=== PATIENT | female | born 1965 | race Caucasian/White ===

== ENCOUNTER → 2019-03-02 | Outpatient (CLI) | payer OTHER ==
[~2019-03-02] MED LIST: ADVA1AER2; ALBU17IN2; BENI20TA11; LEVA500T; PRED20TA; SING10TA31; TAMIFLU; albuterol
--- NOTE | 2019-03-02 11:28 | REP ---
Clinical: Left hip pain. Technique: Neutral and frog lateral views of the left hip. Findings: Evidence for prior arthroplasty with normal appearance in positioning of the orthopedic hardware. No evidence for loosening. No acute fracture dislocation. No degenerative changes or significant heterotopic ossification. Surrounding soft tissues are unremarkable. Impression: Relatively normal left hip radiographs. Evidence of prior arthroplasty. Electronically Signed by Andrae Jay MD 03/02/2019 11:19 A
[2019-03-02 12:06] LABS: HEMOGLOBIN A1c 10.7 %
[2019-03-02 12:28] LABS: ALBUMIN 3.5 GM/DL (3.2-5.2); BILIRUBIN,DIRECT 0.1 MG/DL (0.0-0.2); BILIRUBIN,TOTAL 0.4 MG/DL (0.2-1.0); CHOLESTEROL RISK RATIO 4.904 (<5); THYROID STIMULATING HORMONE 3.2 uIU/ML (0.358-3.740); THYROXINE (T4) 10.8 UG/DL (4.5-12.0); TOTAL PROTEIN 7.3 GM/DL (6.4-8.2)
== END ==
LOC: M LAB 10:14
PROVIDERS: ATTEND Student in an Organized Health Care Education/Training Program
DX: M25.552 Pain in left hip (principal); E66.01 Morbid (severe) obesity due to excess calories; Z86.39 Personal history of other endocrine, nutritional and metabolic disease

== ENCOUNTER → 2019-03-04 | Outpatient (REF) | payer OTHER | LOC: M SFHCPLAZ 17:06 | PROVIDERS: ATTEND Family Medicine | DX: Z53.9 Procedure and treatment not carried out, unspecified reason (principal); Z87.09 Personal history of other diseases of the respiratory system; E11.69 Type 2 diabetes mellitus with other specified complication ==

== ENCOUNTER → 2019-03-15 | Outpatient (CLI) | payer OTHER ==
[~2019-03-15] MED LIST changes: +ATOR80TA59; +METF-839 PO; +TOPI25TA10
--- NOTE | 2019-03-15 10:34 | REP ---
RIGHT UPPER QUADRANT SONOGRAPHY: HISTORY: Elevated liver enzymes. FINDINGS: Scanning through the right upper quadrant demonstrates an enlarged echogenic liver consistent with fatty infiltration. The liver span in the midclavicular line is 22 cm. No focal liver lesion is seen. Limited views of the pancreas are unremarkable. The common bile duct could not be seen due to poor insonation of the liver and right upper quadrant. The gallbladder is surgically absent. There is no evidence of right renal abnormality. The right kidney measures 13.4 x 6.4 x 5.5 cm. IMPRESSION: Evidence of fatty infiltration of the liver with hepatomegaly. Otherwise negative post cholecystectomy. Common bile duct not seen. Electronically Signed by Mike Villatoro MD 03/15/2019 10:54 A
== END ==
LOC: M RAD 08:13
PROVIDERS: ATTEND Student in an Organized Health Care Education/Training Program
DX: R94.5 Abnormal results of liver function studies (principal)

== ENCOUNTER → 2019-03-20 | Outpatient (CLI) | payer OTHER ==
[2019-03-20 16:37] LABS: BLOOD UREA NITROGEN 15 MG/DL (7-18); CALCIUM LEVEL 9.7 MG/DL (8.5-10.1); CARBON DIOXIDE LEVEL 24 MEQ/L (21-32); CHLORIDE LEVEL 104 MEQ/L (98-107); CREATININE FOR GFR 0.75 MG/DL (0.55-1.30); GLOMERULAR FILTRATION RATE > 60.0 (>51); GLUCOSE, FASTING 327 MG/DL (70-100); POTASSIUM SERUM 4.3 MEQ/L (3.5-5.1); SODIUM LEVEL 136 MEQ/L (136-145)
== END ==
LOC: M LAB 14:56
PROVIDERS: ATTEND Student in an Organized Health Care Education/Training Program
DX: E11.69 Type 2 diabetes mellitus with other specified complication (principal)

== ENCOUNTER 2019-03-21 00:28 | Emergency (ER) | payer OTHER ==
[~2019-03-21] VITALS: Ht 172.7 cm; Wt 135.4 kg
[~2019-03-21 00:28] MED LIST changes: -ATOR80TA59; -METF-839 PO; -TOPI25TA10
[2019-03-21] MEDS ORDERED: TOPI25TA10 (00:38)
[2019-03-21] MEDS ORDERED: ATOR80TA59 (00:38)
[2019-03-21 01:07] LABS: BASO % 0.5 % (0.0-1.0); EOS # 0.1 10^3/uL (0.0-0.50); EOS % 0.8 % (0.0-3.0); HEMATOCRIT 45.9 % (36.0-47.0); HEMOGLOBIN 15.7 g/dl (12.0-15.5); LYMPH # 2.3 10^3/uL (1.5-4.5); LYMPH % 38.1 % (24.0-44.0); MEAN CORPUSCULAR HEMOGLOBIN 31.4 pg (27.0-33.0); MEAN CORPUSCULAR HGB CONC 34.2 g/dl (32.0-36.5); MEAN CORPUSCULAR VOLUME 91.8 fl (80.0-96.0); MONO # 0.5 10^3/uL (0.0-0.8); MONO % 8.8 % (0.0-5.0); NEUTROPHILS # 3.1 10^3/uL (1.8-7.7); NEUTROPHILS % 51.1 % (36.0-66.0); PLATELET COUNT, AUTOMATED 219 10^3/uL (150-450)
[2019-03-21 01:08] LABS: VENOUS BASE EXCESS -5.1 (-2.0-2.0); VENOUS HCO3 20.8 MEQ/L (23.0-27.0); VENOUS O2 SATURATION 95.8 % (60.0-80.0); VENOUS PARTIAL PRESSURE CO2 41.4 mmHg (38.0-50.0); VENOUS PARTIAL PRESSURE O2 82.8 mmHg (30.0-50.0); VENOUS PH 7.318 UNITS (7.330-7.430); VENOUS STANDARD HCO3 20.3 MEQ/L
[2019-03-21 01:29] LABS: HEMOGLOBIN A1c 11.5 %
[2019-03-21 01:53] LABS: OSMOLALITY SERUM 305 MOSM/KG (275-295)
[2019-03-21 01:56] LABS: ACETONE/KETONE 1.54 MG/DL (<2.81); BLOOD UREA NITROGEN 14 MG/DL (7-18); CALCIUM LEVEL 9.9 MG/DL (8.5-10.1); CARBON DIOXIDE LEVEL 24 MEQ/L (21-32); CHLORIDE LEVEL 101 MEQ/L (98-107); CREATININE FOR GFR 0.96 MG/DL (0.55-1.30); GLOMERULAR FILTRATION RATE > 60.0 (>51); GLUCOSE, FASTING 496 MG/DL (70-100); POTASSIUM SERUM 3.7 MEQ/L (3.5-5.1); SODIUM LEVEL 133 MEQ/L (136-145)
[2019-03-21] MEDS ORDERED: ACETAMINOPHEN TAB 650MG DOSE (2X325MG) PO ONE (02:30)
[2019-03-21] MEDS ORDERED: metFORMIN (GLUCOPHAGE) 500 MG TAB PO ONE (02:30)
[2019-03-21] MEDS ORDERED: HumuLIN R (REGULAR) INSULIN (NovoLIN R) **100U/ML** PER UNIT IV ONE (02:30)
[2019-03-21] MEDS ORDERED: NS 1,000 ML IV ONE (02:30)
[2019-03-21 03:44] LABS: VENOUS BASE EXCESS -5.9 (-2.0-2.0); VENOUS HCO3 19.8 MEQ/L (23.0-27.0); VENOUS O2 SATURATION 97.3 % (60.0-80.0); VENOUS PARTIAL PRESSURE CO2 39.7 mmHg (38.0-50.0); VENOUS PARTIAL PRESSURE O2 94.1 mmHg (30.0-50.0); VENOUS PH 7.316 UNITS (7.330-7.430); VENOUS STANDARD HCO3 19.7 MEQ/L
[2019-03-21 04:15] VITALS: BP 163/91
[2019-03-21] MEDS ORDERED: METF-839 PO (04:17)
== END 2019-03-21 04:38 | disposition home or self-care (01) ==
LOC: M ED 00:28
DX: E11.65 Type 2 diabetes mellitus with hyperglycemia (principal); Z79.899 Other long term (current) drug therapy; Z88.5 Allergy status to narcotic agent; Z88.7 Allergy status to serum and vaccine; Z91.030 Bee allergy status; F17.210 Nicotine dependence, cigarettes, uncomplicated

== ENCOUNTER → 2019-05-01 | Outpatient (CLI) | payer OTHER ==
[~2019-05-01] MED LIST changes: +ATOR80TA59; +METF-839 PO; +TOPI25TA10
--- NOTE | 2019-05-01 15:26 | REPMRS ---
Patient History The patient states she has not had a clinical breast exam in over a year. Patient is postmenopausal. Family history of breast cancer at age 50 in maternal aunt, breast cancer at age 50 in paternal uncle, ovarian cancer at age 50 or over in sister, colorectal cancer at age 50 or over in paternal uncle. No Hormone Replacement Therapy 3D TOMOSYNTHESIS WAS PERFORMED. [facility] lifetime risk for breast cancer is 7.9%. Digital Woman Screen Mammo: May 01, 2019 - Exam #: [id number] Bilateral CC and MLO view(s) were taken. Technologist: Taylor Disla, Technologist Prior study comparison: January 27, 2015, bilateral digital mammo screening bilat, performed at [facility]. December 17, 2013, bilateral digital mammo screening bilat, performed at [facility]. FINDINGS: There are scattered fibroglandular densities. There has been no change in the appearance of the mammogram from the prior studies. There is a mild amount of residual fibroglandular tissue which is fairly symmetric. There is no interval development of dominant mass, architectural distortion, or clustered microcalcification suggestive of malignancy. Assessment: BI-RADS/ACR category 1 mammogram. Negative Mammogram. Recommendation Routine screening mammogram in 1 year (for women over age 40). This mammogram was interpreted with the aid of an FDA-approved computer-aided dectection system. Electronically Signed By: Evan Soto MD 05/01/19 [id number]
== END ==
LOC: M WHC 14:02
PROVIDERS: ATTEND Student in an Organized Health Care Education/Training Program
DX: Z12.31 Encounter for screening mammogram for malignant neoplasm of breast (principal); Z78.0 Asymptomatic menopausal state

== ENCOUNTER → 2019-06-05 | Outpatient (CLI) | payer OTHER ==
[2019-06-05 14:19] LABS: CHOLESTEROL RISK RATIO 3.621 (<5)
--- NOTE | 2019-06-05 14:27 | PFTRPT ---
Site: [facility], [address] [place] [address], [id number] ID: [id number] Name: YONG SANABRIA Visit Date: 06/05/2019 Second ID: [id number] Referring Doctor: Benita Deras D.O. Reviewing Doctor: Palomo Lei MD Pharmaceutical Engineer: Julia Lora Age: 54 : 1965 Sex: Female Race: Height: 67.00 Inches Weight: 294.00 Lbs BSA: 2.38 Order IDs: [id number] Requested Test(s): <RESP-PFT.DLCO> Diagnosis: G89.29 test meet the ATS standards for acceptability and repeatability. Pt was given four puffs of albuterol for postbronchodilator. Review Status: Not Reviewed Pre-Bronch Post-Bronch Pred Actual %Pred Actual %Chng SPIROMETRY FVC (L) 3.80 2.28 60 2.68 17 FEV1 (L) 2.97 1.75 58 2.09 19 FEV1/FVC (%) 79 76 96 78 2 FEF 25% (L/sec) 5.41 2.67 49 4.18 56 FEF 50% (L/sec) 3.77 1.93 51 2.99 54 FEF 75% (L/sec) 1.32 0.68 51 1.36 99 FEF 25-75% (L/sec) 2.72 1.51 55 2.56 69 FEF Max (L/sec) 7.00 3.19 45 4.19 31 FIVC (L) 2.13 2.63 23 FIF 50% (L/sec) 4.22 2.93 69 2.90 -1 FIF Max (L/sec) 2.97 3.15 5 MVV (L/min) 100 55 55 Expiratory Time (sec) 6.97 7.18 2 Back Extrap Vol (L) 0.15 0.13 -8 Time To FEFmax (sec) 0.207 0.142 -31 LUNG VOLUMES SVC (L) 3.46 2.61 75 IC (L) 2.38 2.45 102 ERV (L) 1.08 0.16 15 TGV (L) 3.12 3.70 118 RV (Pleth) (L) 2.04 3.54 173 TLC (Pleth) (L) 5.50 6.15 111 RV/TLC (Pleth) (%) 37 57 155 DIFFUSION DLCOunc (ml/min/mmHg) 23.37 23.10 98 DLCOcor (ml/min/mmHg) 23.37 22.38 95 DL/VA (ml/min/mmHg/L) 4.25 4.92 115 VA (L) 5.50 4.55 82 BHT (sec) 10.11 IVC (L) 2.44 TLC (SB) (L) 4.70 AIRWAYS RESISTANCE Raw (cmH2O/L/s) 1.86 2.93 157 Gaw (L/s/cmH2O) 1.03 0.34 33 sRaw (cmH2O*s) 4.76 10.39 218 sGaw (1/cmH2O*s) 0.20 0.10 48 BLOOD GASES Hgb (gm/dL) 14.5
[2019-06-05 14:34] LABS: HEMOGLOBIN A1c 10.5 %
--- NOTE | 2019-06-06 09:07 | REP ---
Clinical: Chronic pain. Technique: AP and lateral views of the right femur. Findings: Visualized portions of the femur are intact and without acute fracture or dislocation. No subcutaneous emphysema or foreign body. No abnormal calcifications. Mild arthritic changes at the knee noted. Impression: Mild arthritic changes at the knee. Visualized portions of the femur are intact. Electronically Signed by Andrae Jay MD 06/06/2019 08:59 A
--- NOTE | 2019-06-06 09:09 | REP ---
Clinical: Chronic pain. Technique: Neutral and frog lateral views of the right hip. Findings: Moderate arthritic changes include joint space narrowing, subchondral sclerosis/heterogeneity, and osteophyte formation along the acetabular rim and femoral head. No acute fracture dislocation. Surrounding soft tissues unremarkable. Impression: Early moderate arthritic changes. Electronically Signed by Andrae Jay MD 06/06/2019 09:00 A
== END ==
LOC: M CARPUL 12:56
PROVIDERS: ATTEND Student in an Organized Health Care Education/Training Program
DX: M16.11 Unilateral primary osteoarthritis, right hip (principal); E11.69 Type 2 diabetes mellitus with other specified complication; E78.5 Hyperlipidemia, unspecified; Z11.59 Encounter for screening for other viral diseases; G89.29 Other chronic pain; M25.551 Pain in right hip

== ENCOUNTER → 2020-02-04 | Outpatient (REF) | payer OTHER ==
[~2020-02-04] MED LIST changes: +COMBAER6 INH; +PRED20TA PO
[2020-02-04 17:23] LABS: HEMOGLOBIN A1c 9.1 %
[2020-02-04 17:27] LABS: BLOOD UREA NITROGEN 12 MG/DL (7-18); CALCIUM LEVEL 9.5 MG/DL (8.5-10.1); CARBON DIOXIDE LEVEL 26 MEQ/L (21-32); CHLORIDE LEVEL 106 MEQ/L (98-107); GLOMERULAR FILTRATION RATE > 60.0 (>51); GLUCOSE, FASTING 171 MG/DL (70-100); POTASSIUM SERUM 4.6 MEQ/L (3.5-5.1); SODIUM LEVEL 139 MEQ/L (136-145)
[2020-02-04 18:00] LABS: MAU/CREAT RATIO 17.7 MCG/MG (0.0-30.0)
== END ==
LOC: M SFHCPLAZ 13:49
DX: E11.69 Type 2 diabetes mellitus with other specified complication (principal)

== ENCOUNTER 2020-05-26 12:50 | Emergency (ER) | payer OTHER ==
[~2020-05-26] VITALS: Ht 175.3 cm; Wt 130.0 kg
[~2020-05-26 12:50] MED LIST changes: -COMBAER6 INH; -PRED20TA PO
[2020-05-26 13:22] LABS: BASO % 0.4 % (0.0-1.0); EOS % 0.7 % (0.0-3.0); HEMATOCRIT 49.4 % (36.0-47.0); HEMOGLOBIN 16.3 g/dl (12.0-15.5); LYMPH # 1.6 10^3/uL (1.5-5.0); LYMPH % 34.7 % (24.0-44.0); MEAN CORPUSCULAR HEMOGLOBIN 30.4 pg (27.0-33.0); MONO # 0.4 10^3/uL (0.0-0.8); MONO % 8.4 % (0.0-5.0); NEUTROPHILS # 2.5 10^3/uL (1.5-8.5); NEUTROPHILS % 55.6 % (36.0-66.0); PLATELET COUNT, AUTOMATED 246 10^3/uL (150-450); RED BLOOD COUNT 5.37 10^6/uL (4.00-5.40); WHITE BLOOD COUNT 4.5 10^3/uL (4.0-10.0)
[2020-05-26] MEDS ORDERED: NITROGLYCERIN 2% OINT 1 GM *U/D* PKT TOP ONE (13:30)
[2020-05-26] MEDS ORDERED: GI COCKTAIL 50ML BTL(HYOSCYAMINE/MAALOX/LIDOCAINE VISCOUS)(1:3:1) PO ONE (13:30)
[2020-05-26 13:42] LABS: ALBUMIN 3.8 GM/DL (3.2-5.2); ALT/SGPT 66 U/L (12-78); BILIRUBIN,DIRECT < 0.1 MG/DL (0.0-0.2); BILIRUBIN,TOTAL 0.4 MG/DL (0.2-1.0); NT-PRO BNP 19 PG/ML (<125); TOTAL PROTEIN 7.4 GM/DL (6.4-8.2)
--- NOTE | 2020-05-26 13:45 | REP ---
INDICATION: CHEST PAIN. COMPARISON: 06/16/2009. TECHNIQUE: SINGLE PORTABLE AP VIEW OF THE CHEST WAS PERFORMED. FINDINGS: THERE IS NO ACUTE INFILTRATE OR PULMONARY EDEMA. LUNGS ARE CLEAR. HEART IS NOT SIGNIFICANTLY ENLARGED. MEDIASTINAL SILHOUETTE IS UNREMARKABLE. THE VISUALIZED OSSEOUS STRUCTURES ARE INTACT. IMPRESSION: NO ACUTE PULMONARY DISEASE. <Electronically signed by Evan Soto > 05/26/20 [id number]
[2020-05-26 13:46] LABS: INR 0.98; PROTHROMBIN TIME 13.2 SECONDS (12.5-14.3)
[2020-05-26 13:47] LABS: PARTIAL THROMBOPLASTIN TIME 26.3 SECONDS (24.2-38.5)
[2020-05-26 13:49] VITALS: BP 149/91
[2020-05-26] MEDS ORDERED: dexameTHASONE 20MG/5ML VIAL (J1100 PER 1MG) IV ONE (14:00)
[2020-05-26] MEDS ORDERED: ISOVUE-370 76% 100ML VIAL As Ordered ONE (14:05)
--- NOTE | 2020-05-26 14:28 | ECGEPIP ---
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
--- NOTE | 2020-05-26 14:43 | REP ---
INDICATION: chest pain, sob. COMPARISON: CT abdomen and pelvis 07/18/2015. TECHNIQUE: CT angiogram chest performed following the intravenous administration of 100 cc of Isovue 370. Sagittal and coronal reconstruction images are performed. FINDINGS: Lungs: There are fibro atelectatic changes in the lingula. There is a tiny 3 mm nodular density in the left lower lobe on image number 66. Mediastinum: No adenopathy. Pulmonary arteries: No evidence of pulmonary embolism. Justina: No adenopathy. Axilla: No adenopathy. Pleura: No effusion. Heart: Not enlarged. Thoracic aorta: No aneurysm or dissection. Upper abdominal structures: Prior cholecystectomy. Left adrenal gland thickening is stable. Visualized osseous structures: Mild degenerative changes of the spine without compression deformity. IMPRESSION: No CT evidence of pulmonary embolism.No infiltrate seen. Tiny 3 mm nodular density left lower lobe is of doubtful significance, optional CT of the chest in 1 year if the patient is at high risk for cancer. <Electronically signed by Evan Soto > 05/26/20 [id number]
[2020-05-26] MEDS: COMBIVENT RESPIMAT 100-20MCG INHALER 4GM INH SCH ×3 (14:45→15:38)
[2020-05-26] MEDS ORDERED: PRED20TA PO (15:39)
[2020-05-26] MEDS ORDERED: COMBAER6 INH (15:39)
[2020-05-26] MEDS ORDERED: KETOROLAC 30 MG/ML 1ML VIAL IV ONE (15:45)
--- NOTE | 2020-05-26 16:20 | ED PDOC ---
Post-Departure Follow-Up dr dent faxed formal report of cta chest for fu Kendrick Menjivar MD May 26, 2020 16:20
[2020-05-26 16:45] VITALS: BP 128/67
--- NOTE | 2020-05-26 18:44 | ECGEPIP ---
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
== END 2020-05-26 17:10 | disposition home or self-care (01) ==
LOC: M ED 12:50 → EDBD 12:50 → M ED 17:10
DX: I50.9 Heart failure, unspecified (principal); J44.9 Chronic obstructive pulmonary disease, unspecified; E11.9 Type 2 diabetes mellitus without complications; I11.0 Hypertensive heart disease with heart failure; E03.9 Hypothyroidism, unspecified; G43.909 Migraine, unspecified, not intractable, without status migrainosus; Z79.899 Other long term (current) drug therapy; Z79.82 Long term (current) use of aspirin; Z91.030 Bee allergy status; Z88.5 Allergy status to narcotic agent; Z88.7 Allergy status to serum and vaccine; F17.210 Nicotine dependence, cigarettes, uncomplicated
CPT/HCPCS: 71045; 71275; 80047; 80076; 83880; 85025; 85610; 85730; 93005; 93041; 94640; 94760; 96374; 96375; 99285; J1100; J1885; Q9967

== ENCOUNTER → 2020-08-20 | Outpatient (CLI) | payer SELFPAY ==
[~2020-08-20] MED LIST changes: +COMBAER6 INH; +PRED20TA PO
== END ==
LOC: M LABSMTC 13:36
PROVIDERS: ATTEND Pediatrics
DX: Z20.822 Contact with and (suspected) exposure to COVID-19 (principal)

== ENCOUNTER 2020-09-30 00:27 | Observation (INO) | payer OTHER ==
[2020-09-30] VITALS (8 sets, daily range): BP systolic 121–140; BP diastolic 60–79; PULSE 63–88
[~2020-09-30] VITALS: Ht 172.7 cm; Wt 119.8 kg
[~2020-09-30 00:27] MED LIST changes: -ATOR80TA59; +ATOR80TA59 PO; -TOPI25TA10; +TOPI25TA10 PO
[2020-09-30 01:12] LABS: BASO % 0.3 % (0.0-1.0); EOS # 0.1 10^3/uL (0.0-0.5); EOS % 0.6 % (0.0-3.0); HEMATOCRIT 46.4 % (36.0-47.0); HEMOGLOBIN 15.2 g/dl (12.0-15.5); LYMPH # 3.6 10^3/uL (1.5-5.0); MEAN CORPUSCULAR HEMOGLOBIN 30.3 pg (27.0-33.0); MEAN CORPUSCULAR HGB CONC 32.8 g/dl (32.0-36.5); MEAN CORPUSCULAR VOLUME 92.6 fl (80.0-96.0); MONO # 0.7 10^3/uL (0.0-0.8); MONO % 7.1 % (2.0-8.0); NEUTROPHILS # 5.1 10^3/uL (1.5-8.5); NEUTROPHILS % 53.7 % (36.0-66.0); PLATELET COUNT, AUTOMATED 259 10^3/uL (150-450); RED BLOOD COUNT 5.01 10^6/uL (4.00-5.40); WHITE BLOOD COUNT 9.5 10^3/uL (4.0-10.0)
[2020-09-30 01:16] LABS: INR 1.05; PROTHROMBIN TIME 13.9 SECONDS (12.5-14.3)
[2020-09-30 01:26] LABS: ALBUMIN 3.6 GM/DL (3.2-5.2); ALT/SGPT 38 U/L (12-78); BILIRUBIN,DIRECT < 0.1 MG/DL (0.0-0.2); BILIRUBIN,TOTAL 0.2 MG/DL (0.2-1.0); BLOOD UREA NITROGEN 14 MG/DL (7-18); CALCIUM LEVEL 9.3 MG/DL (8.5-10.1); CARBON DIOXIDE LEVEL 27 MEQ/L (21-32); CHLORIDE LEVEL 110 MEQ/L (98-107); CK-MB VALUE MASS 1.4 NG/ML (<3.6); CPK CREATINE PHOSPHOKINASE 94 U/L (26-192); CREATININE FOR GFR 0.88 MG/DL (0.55-1.30); GLOMERULAR FILTRATION RATE > 60.0 (>51); GLUCOSE, FASTING 244 MG/DL (70-100); LIPASE 250 U/L (73-393); MB/CK RELATIVE INDEX 1.49 (< OR =4); POTASSIUM SERUM 3.6 MEQ/L (3.5-5.1); SODIUM LEVEL 143 MEQ/L (136-145); TOTAL PROTEIN 7.2 GM/DL (6.4-8.2); TROPONIN I < 0.02 NG/ML (< 0.10)
[2020-09-30] MEDS ORDERED: ISOVUE-370 76% 100ML VIAL As Ordered ONE (01:56)
--- NOTE | 2020-09-30 02:04 | REPVR ---
PROCEDURE INFORMATION: Exam: XR Chest Exam date and time: 09/30/2020 1:45 AM Age: 55 years old Clinical indication: Chest pain; Type not specified TECHNIQUE: Imaging protocol: XR of the chest Views: 1 view. COMPARISON: [facility] PORTABLE CHEST X-RAY 05/26/2020 1:15 PM FINDINGS: Lungs: There are no interval infiltrates. Pleural spaces: Unremarkable. No pleural effusion. No pneumothorax. Heart/Mediastinum: Borderline cardiomegaly. Minimal density at the left cardiac apex which is similar to the prior study and may reflect fat pad. Bones/joints: Unremarkable. Soft tissues: There are moderately generous overlying soft tissues. IMPRESSION: Essentially stable chest since 05/26/2020. Electronically signed by: Julito Calvo On 09/30/2020 02:04:52 AM
[2020-09-30 02:13] LABS: NT-PRO BNP 50 PG/ML (<125)
--- NOTE | 2020-09-30 02:25 | REPVR ---
PROCEDURE INFORMATION: Exam: CT Angiography Chest With Contrast Exam date and time: 09/30/2020 1:51 AM Age: 55 years old Clinical indication: Chest pain; Type not specified TECHNIQUE: Imaging protocol: Computed tomographic angiography of the chest with contrast. 3D rendering (Not supervised by radiologist): MIP and/or 3D reconstructed images were created by the technologist. Radiation optimization: All CT scans at this facility use at least one of these dose optimization techniques: automated exposure control; mA and/or kV adjustment per patient size (includes targeted exams where dose is matched to clinical indication); or iterative reconstruction. Contrast material: ISO; Contrast volume: 75 ml; Contrast route: INTRAVENOUS (IV); COMPARISON: CT ANGIO CHEST 05/26/2020 2:10 PM FINDINGS: Pulmonary arteries: The main pulmonary artery measures 34 mm. No pulmonary embolism is identified. Aorta: The ascending thoracic aorta measures 36 mm. Lungs: Minimal fibro-atelectatic change in the right middle lobe and lingular tip. Pleural spaces: Unremarkable. No pneumothorax. No pleural effusion. Heart: Unremarkable. No cardiomegaly. No pericardial effusion. Lymph nodes: Unremarkable. No enlarged lymph nodes. Gallbladder and bile ducts: Status post cholecystectomy. Kidneys and ureters: Nonobstructing right renal calculus. Bones/joints: Slight anterior wedge configuration of T6 which appears to be chronic. No acute fracture. Soft tissues: Unremarkable. IMPRESSION: 1. Status post cholecystectomy. 2. Small nonobstructing right renal calculus. 3. Otherwise negative CTA chest. No pulmonary embolism is identified. Electronically signed by: Julito Calvo On 09/30/2020 02:25:32 AM
[2020-09-30] MEDS: MORPHINE 2 MG/ML 1ML VIAL (J2270) IV PRN ×2 (02:43→05:43)
[2020-09-30 03:25] LABS: RSV AMPLIFICATION NEGATIVE (NEGATIVE)
[2020-09-30] MEDS ORDERED: KETOROLAC 30 MG/ML 1ML VIAL IV ONE (03:45)
[2020-09-30] MEDS ORDERED: ALBUTEROL 90 MCG/ACT 8GM HFA INHALER INH ONE (03:45)
[2020-09-30 06:00] LABS: CK-MB VALUE MASS < 1.0 NG/ML (<3.6); CPK CREATINE PHOSPHOKINASE 79 U/L (26-192); MB/CK RELATIVE INDEX 1.27 (< OR =4); TROPONIN I < 0.02 NG/ML (< 0.10)
[2020-09-30] MEDS ORDERED: dexameTHASONE 20MG/5ML VIAL (J1100 PER 1MG) IV ONE (06:50)
[2020-09-30] MEDS ORDERED: ASPI81TA26 PO (07:15)
[2020-09-30] MEDS ORDERED: BASA100I SC (07:15)
[2020-09-30] MEDS ORDERED: EPIN0.3I11 IM (07:15)
[2020-09-30] MEDS ORDERED: ALBU8.5H INH (07:15)
[2020-09-30] MEDS ORDERED: LISI10TA22 PO (07:15)
[2020-09-30] MEDS ORDERED: GLUCOSE 4GM CHEW TABLET PO PRN (08:50)
[2020-09-30] MEDS ORDERED: DEXTROSE 50% 50 ML SYRINGE IV PRN (08:50)
[2020-09-30] MEDS ORDERED: GLUCAGON INJ 1MG VIAL SC PRN (08:50)
[2020-09-30] MEDS ORDERED: MOM 30ML SUSPENSION UDC PO PRN (08:50)
[2020-09-30] MEDS ORDERED: ACETAMINOPHEN TAB 650MG DOSE (2X325MG) PO PRN (08:50)
[2020-09-30] MEDS: DOCUSATE SODIUM 100MG CAPSULE PO SCH ×2 (09:00→21:01)
[2020-09-30] MEDS ORDERED: ALBUTEROL 90 MCG/ACT 8GM HFA INHALER INH PRN (09:10)
[2020-09-30] MEDS: ATORVASTATIN 20 MG TAB PO SCH (09:27)
[2020-09-30] MEDS: ASPIRIN 81 MG ENTERIC TAB PO SCH (09:27)
[2020-09-30] MEDS: ENOXAPARIN 40MG/0.4ML SYRINGE (J1650 PER 10MG) SC SCH (09:27)
[2020-09-30 09:32] LABS: C REACTIVE PROTEIN QUANTITATIV < 0.30 MG/DL (0.00-0.30)
[2020-09-30 10:45] LABS: ERYTHROCYTE SEDIMENTATION RATE 10 mm/hr (0-30)
--- NOTE | 2020-09-30 11:26 | HPEPDOC ---
[facility] Medical History & Physical Date of Admission Sep 30, 2020 Date of Service: Sep 30, 2020 History and Physical Chief complaint: Who presented to emergency room with complaints of chest pain History of present illness: Patient is a 55-year-old female who presented to the emergency room with complaints of chest pain that started yesterday afternoon. Patient reports that the pain is occurring in the center of her chest occurring intermittently described as a 6/10, radiating to left arm, alleviated with clots aggravated by nothing. Patient reports some shortness of breath mostly with exertion. Reports some productive cough with yellow sputum. Denies any blood-tinged. Has not experience any fevers or chills. Denies any lower extremity swelling. Patient denies any nausea, vomiting, abdominal pain, constipation, diarrhea, or urinary discomfort. Patient reports that she used to see Dr. Chiu in the past, however, has stopped seeing him because of several missed appointments. Patient has had a stress test greater than 10 years ago that was reported negative/ Past Medical History: HTN DLP IDDM2 COPD Migraine headaches Past Surgical History: Left hip arthroplasty Cholecystectomy Tubal ligation Allergies: See below Medications: See below Family History: - Patient reports that her father had a history of hepatic heart. 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 Review of Systems: 10 point review of systems complete, all negative otherwise stated in HPI Physical exam: - Vitals: BP [140/70], HR [51], RR [18], Sat [96%RA], Temp [96.9F] - General: Lying in bed, Speaking in full sentences, AAOx3 - HEENT: NC, AT, PERRLA - CVS: RRR, +S1S2 - Chest: Tenderness on palpation - Lungs: Fair air entry bilaterally, No appreciable wheezing / rales / rhonchi - Abdomen: Soft, Non-distended, Non-tender - Extremities: No lower extremity edema, No calf tenderness - Neuro: No focal motor or sensory deficit - Skin: No visible rashes Labs: See below Imaging: CXR 09/30: Essentially stable chest since 05/26/2020. CTA Chest 09/30: 1. Status post cholecystectomy. 2. Small nonobstructing right renal calculus. 3. Otherwise negative CTA chest. No pulmonary embolism is identified. EKG: See below Assessment and Plan: Atypical chest pain - Currently patient reports some chest discomfort occurring intermittently - There is chest pain on palpation of her chest wall - Imaging noted above; no evidence of PE - EKG reviewed; no evidence of ischemic - Troponin x 2 negative; will continue to trend - Will check ECHO / ESR / CRP - Will c/w telemetry monitoring - Will start Tylenol PRN - Will likely require outpatient follow up with Cardiology for stress testing HTN - BP well controlled - c/w Lisinopril with holding parameters DLP - c/w Atorvastatin IDDM2 - Will c/w long acting insulin at adjusted dose - Will start ISS Chornic COPD - No evidence of wheezing currently - c/w inhaled therapy as ordered Migraine headaches - c/w Topiramate DVT prophylaxis - Will start Lovenox Vital Signs Vital Signs Date Time Temp Pulse Resp B/P (MAP) Pulse Ox O2 Delivery O2 Flow Rate FiO2 09/30/20 10:25 96.9 51 18 140/70 (93) 96 Room Air Laboratory Data Labs 24H Laboratory Tests 2 09/30/20 00:38: Immature Granulocyte % (Auto) 0.3, Neutrophils (%) (Auto) 53.7, Lymphocytes (%) (Auto) 38.0, Monocytes (%) (Auto) 7.1, Eosinophils (%) (Auto) 0.6, Basophils (%) (Auto) 0.3, Neutrophils # (Auto) 5.1, Lymphocytes # (Auto) 3.6, Monocytes # (Auto) 0.7, Eosinophils # (Auto) 0.1, Basophils # (Auto) 0.0, Nucleated Red Blood Cells % (auto) 0.0, Erythrocyte Sedimentation Rate 10, Prothrombin Time 13.9, Prothromb Time International Ratio 1.05, Anion Gap 6L, Glomerular Bob tration Rate > 60.0, Calcium Level 9.3, Total Bilirubin 0.2, Direct Bilirubin < 0.1, Aspartate Amino Transf (AST/SGOT) 11, Alanine Aminotransferase (ALT/SGPT) 38, Alkaline Phosphatase 106, Total Creatine Kinase 94, Creatine Kinase MB 1.4, Creatine Kinase MB Relative Index 1.49, Troponin I < 0.02, C-Reactive Protein, Quantitative < 0.30, XZ-Ihp-L-Type Natriuretic Peptide 50, Total Protein 7.2, Albumin 3.6, Albumin/Globulin Ratio 1.0L, Lipase 250 09/30/20 02:39: Coronavirus (COVID-19)(PCR) NEGATIVE, Influenza Type A (RT-PCR) NEGATIVE, Influenza Type B (RT-PCR) NEGATIVE, Respiratory Syncytial Virus (PCR) NEGATIVE 09/30/20 05:23: Total Creatine Kinase 79, Creatine Kinase MB < 1.0, Creatine Kinase MB Relative Index 1.27, Troponin I < 0.02 09/30/20 10:56: CBC/BMP Laboratory Tests 09/30/20 00:38 Home Medications Scheduled Aspirin (Aspirin EC) 81 Mg Tablet.dr, 81 MG PO DAILY Atorvastatin Calcium (Atorvastatin Calcium) 80 Mg Tablet, 80 MG PO DAILY Insulin Glargine,Hum.rec.anlog (Basaglar Kwikpen U-100) 100 Unit/1 Ml Insuln.pen, 42 UNITS SC DAILY Lisinopril (Lisinopril) 10 Mg Tablet, 10 MG PO DAILY Topiramate (Topiramate) 25 Mg Tablet, 25 MG PO QHS Scheduled PRN Albuterol Sulfate (Albuterol Sulfate Hfa) 8.5 Gm Hfa.aer.ad, 2 PUFFS INH QID PRN for SOB/WHEEZING Epinephrine (Epinephrine) 0.3 Mg/0.3 Ml Auto.injct, 0.3 MG IM ASDIRECTED PRN for ANAPHYLAXIS Allergies Coded Allergies: bee venom protein (honey bee) (Verified Allergy, Severe, 03/21/19) codeine (Verified Allergy, Severe, SWELLING, 09/30/20) measles, mumps, and rubella vaccine (Verified Allergy, Severe, SWELLING/HIVES, 09/30/20) LIGIA WELLS MD Sep 30, 2020 11:26
[2020-09-30 11:34] LABS: CK-MB VALUE MASS 1.1 NG/ML (<3.6); CPK CREATINE PHOSPHOKINASE 124 U/L (26-192); MB/CK RELATIVE INDEX 0.89 (< OR =4); TROPONIN I < 0.02 NG/ML (< 0.10)
[2020-09-30] MEDS: HumaLOG INSULIN (NovoLOG) PER UNIT SC SCH ×2 (12:21→17:27)
[2020-09-30] MEDS ORDERED: KETOROLAC 30 MG/ML 1ML VIAL IV PRN (13:00)
--- NOTE | 2020-09-30 14:24 | ECGEPIP ---
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
--- NOTE | 2020-09-30 14:24 | ECGEPIP ---
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
[2020-09-30] MEDS ORDERED: SLF 3 ML SYR IV PRN (15:50)
[2020-09-30] MEDS ORDERED: LEVEMIR (INSULIN DETEMIR) 1 UNITS/0.01ML SC SCH (21:00)
[2020-09-30] MEDS ORDERED: TOPIRAMATE (TopAMAX) 25 MG TAB PO SCH (21:00)
[2020-09-30] MEDS ORDERED: HumaLOG INSULIN (NovoLOG) PER UNIT SC SCH (21:00)
[2020-09-30] MEDS: SLF 3 ML SYR IV SCH (21:02)
[2020-10-01] VITALS: BP 113/70; PULSE 68
[2020-10-01 04:00] VITALS: BP 122/66; PULSE 45
[2020-10-01 04:52] LABS: ALBUMIN 3.4 GM/DL (3.2-5.2); ALT/SGPT 59 U/L (12-78); BILIRUBIN,TOTAL 0.3 MG/DL (0.2-1.0); BLOOD UREA NITROGEN 16 MG/DL (7-18); CARBON DIOXIDE LEVEL 26 MEQ/L (21-32); CHLORIDE LEVEL 108 MEQ/L (98-107); CREATININE FOR GFR 0.76 MG/DL (0.55-1.30); GLOMERULAR FILTRATION RATE > 60.0 (>51); GLUCOSE, FASTING 208 MG/DL (70-100); MAGNESIUM LEVEL 1.9 MG/DL (1.8-2.4); POTASSIUM SERUM 4.1 MEQ/L (3.5-5.1); SODIUM LEVEL 139 MEQ/L (136-145); TOTAL PROTEIN 6.9 GM/DL (6.4-8.2)
[2020-10-01] MEDS: SLF 3 ML SYR IV SCH (06:01)
[2020-10-01 07:48] VITALS: BP 132/67
[2020-10-01 08:00] VITALS: PULSE 58
[2020-10-01] MEDS: ATORVASTATIN 20 MG TAB PO SCH (08:58)
[2020-10-01] MEDS: ASPIRIN 81 MG ENTERIC TAB PO SCH (08:58)
[2020-10-01] MEDS: ENOXAPARIN 40MG/0.4ML SYRINGE (J1650 PER 10MG) SC SCH (08:58)
[2020-10-01] MEDS: DOCUSATE SODIUM 100MG CAPSULE PO SCH (08:59)
[2020-10-01] MEDS: HumaLOG INSULIN (NovoLOG) PER UNIT SC SCH (09:00)
[2020-10-01] MEDS ORDERED: QC A650T3 PO (09:07)
--- NOTE | 2020-10-01 11:19 | ECHO ---
DATE OF PROCEDURE: 09/30/2020 Age: 55 Gender: Female Height: 173 cm Weight: 127 kg REFERRING PHYSICIAN: Dr. Julio Shearer. INDICATION: Chest pain, unspecified. MEASUREMENTS: 2D Measurements: Aortic root 3.1 cm Left atrium 4.1 cm Left ventricle diastole 5.0 cm Intraventricular septum 1.32 cm Posterior wall 1.30 cm Inferior vena cava 1.4 cm (more than 50% respiratory variation) Doppler Measurements: No aortic stenosis No aortic regurgitation Aortic valve velocity 154 cm/s LVOT velocity 121 cm/s LVOT VTI 26.0 cm Trace mitral regurgitation Mitral E velocity 84.4 cm/s Mitral A velocity 84.1 cm/s Mitral deceleration time 222 msec Trace tricuspid regurgitation No pulmonic regurgitation Pulmonary artery acceleration time 135 msec MITRAL ANNULAR TISSUE DOPPLER E prime septal 7.2 cm/s, E prime lateral 8.0 cm/s DESCRIPTION: Rhythm was sinus. Image quality was fair. This was a 2D, M-mode, color flow Doppler, and pulsed wave Doppler examination including mitral annular tissue Doppler. CONCLUSIONS: 1. Mild concentric left ventricle hypertrophy. Normal regional LV wall motion and wall thickening. Normal LV systolic function. LVEF 65% by visual estimate. LV diastolic function assessment indeterminate (normal LV diastolic function versus pseudo-normal LV diastolic function). 2. Tiny pericardial effusion observed over the AV groove posteriorly and over the anterior wall of the right ventricle. No diastolic chamber collapse. 3. Mild left atrial dilatation. 4. Mild aortic valve sclerosis of a 3-cusp aortic valve. No aortic stenosis or regurgitation. 5. Normal right ventricle size and systolic function. Normal right ventricle size and systolic function. Normal pulmonary artery systolic pressure. Normal CVP. 6. Left pleural effusion. MTDD
--- NOTE | 2020-10-01 13:00 | DS.PDOC ---
Discharge Summary General Date of Admission Sep 30, 2020 at 00:28 Date of Discharge 10/01/20 Discharge Summary PROCEDURES PERFORMED DURING STAY: [None]. ADMITTING DIAGNOSES: Atypical chest pain HTN DLP IDDM2 [place] COPD Migraine headaches DISCHARGE DIAGNOSES: Atypical chest pain HTN DLP IDDM2 [place] COPD Migraine headaches Costochondritis COMPLICATIONS/CHIEF COMPLAINT: A Typical Chest Pain, Copd. HISTORY OF PRESENT ILLNESS: Patient is a 55-year-old female who presented to the emergency room with complaints of chest pain that started yesterday afternoon. Patient reports that the pain is occurring in the center of her chest occurring intermittently described as a 6/10, radiating to left arm, alleviated with clots aggravated by nothing. Patient reports some shortness of breath mostly with exertion. Reports some productive cough with yellow sputum. Denies any blood-tinged. Has not experience any fevers or chills. Denies any lower extremity swelling. Patient denies any nausea, vomiting, abdominal pain, constipation, diarrhea, or urinary discomfort. Patient reports that she used to see Dr. Chiu in the past, however, has stopped seeing him because of several missed appointments. Patient has had a stress test greater than 10 years ago that was reported negative/ HOSPITAL COURSE: Cardiac workup was negative. Most likely patient developed atypical chest pain due to costochondritis. However, Patient will need outpatient stress study due to multiple risk factors. DISCHARGE MEDICATIONS: Please see below. ALLERGIES: Please see below. PHYSICAL EXAMINATION ON DISCHARGE: VITAL SIGNS: Please see below. - Vitals: BP [140/70], HR [51], RR [18], Sat [96%RA], Temp [96.9F] - General: Lying in bed, Speaking in full sentences, AAOx3 - HEENT: NC, AT, PERRLA - CVS: RRR, +S1S2 - Chest: Tenderness on palpation - Lungs: Fair air entry bilaterally, No appreciable wheezing / rales / rhonchi - Abdomen: Soft, Non-distended, Non-tender - Extremities: No lower extremity edema, No calf tenderness - Neuro: No focal motor or sensory deficit - Skin: No visible rashes LABORATORY DATA: Please see below. IMAGING: [facility] NAME: YONG SANABRIA DATE OF : 1965 BUSINESS NUMBER: [id number] AGE: 55 SEX: F REPORT #: [id number] ROOM: ED TECHNOLOGIST: [facility] DOCTOR: SPENSER HANNON MD Ordered for Date&Time: 09/30/20 0151 cc: [~ rep ct ivnm] Service Date&Time: This report is in Signed status. Interpretation performed by [facility]. Thank you for having your radiology procedures performed at [facility] RADIOLOGY REPORT Date&Time printed: [~ rep prt dt last] [~ rep prt tm last] Page 2 of 2 [place] [id number] RADIOLOGY REPORT This report is in Signed status. Interpretation performed by [facility]. Thank you for having your radiology procedures performed at [facility] RADIOLOGY REPORT Date&Time printed: [~ rep prt dt last] [~ rep prt tm last] Page 1 of 2 PROCEDURE INFORMATION: Exam: CT Angiography Chest With Contrast Exam date and time: 09/30/2020 1:51 AM Age: 55 years old Clinical indication: Chest pain; Type not specified TECHNIQUE: Imaging protocol: Computed tomographic angiography of the chest with contrast. 3D rendering (Not supervised by radiologist): MIP and/or 3D reconstructed images were created by the technologist. Radiation optimization: All CT scans at this facility use at least one of these dose optimization techniques: automated exposure control; mA and/or kV adjustment per patient size (includes targeted exams where dose is matched to clinical indication); or iterative reconstruction. Contrast material: ISO; Contrast volume: 75 ml; Contrast route: INTRAVENOUS (IV); COMPARISON: CT ANGIO CHEST 05/26/2020 2:10 PM FINDINGS: Pulmonary arteries: The main pulmonary artery measures 34 mm. No pulmonary embolism is identified. Aorta: The ascending thoracic aorta measures 36 mm. Lungs: Minimal fibro-atelectatic change in the right middle lobe and lingular tip. Pleural spaces: Unremarkable. No pneumothorax. No pleural effusion. Heart: Unremarkable. No cardiomegaly. No pericardial effusion. Lymph nodes: Unremarkable. No enlarged lymph nodes. Gallbladder and bile ducts: Status post cholecystectomy. Kidneys and ureters: Nonobstructing right renal calculus. Bones/joints: Slight anterior wedge configuration of T6 which appears to be chronic. No acute fracture. Soft tissues: Unremarkable. IMPRESSION: 1. Status post cholecystectomy. 2. Small nonobstructing right renal calculus. 3. Otherwise negative CTA chest. No pulmonary embolism is identified. Electronically signed by: Fredy Calvo On 09/30/2020 02:25:32 AM DD: FREDY CALVO MD 09/30/20150 DT: SUMMER 09/30/20224 DS: PAOLA 09/30/20224 [~ rep ct labl] PROGNOSIS: Fair ACTIVITY: [As tolerated]. DIET: Cardiac DISPOSITION: 01 Home, Self-Care. 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 TIME SPENT ON DISCHARGE: 30 minutes. Vital Signs/I&Os Vital Signs Date Time Temp Pulse Resp B/P (MAP) Pulse Ox O2 Delivery O2 Flow Rate FiO2 10/01/20 08:00 58 10/01/20 07:48 97.7 20 132/67 (88) 97 Room Air I&O- Last 24 Hours up to 6 AM 10/01/20 06:00 Intake Total 240 ml Output Total 0 ml Balance 240 ml Laboratory Data Labs 24H Laboratory Tests 2 09/30/20 16:42: Bedside Glucose (Misc Panel) 262H 09/30/20 20:40: Bedside Glucose (Misc Panel) 331H 10/01/20 03:49: Anion Gap 5L, Glomerular Filtration Rate > 60.0, Calcium Level 9.0, Magnesium Level 1.9, Total Bilirubin 0.3, Aspartate Amino Transf (AST/SGOT) 19, Alanine Aminotransferase (ALT/SGPT) 59, Alkaline Phosphatase 99, Total Protein 6.9, Albumin 3.4, Albumin/Globulin Ratio 1.0L CBC/BMP Laboratory Tests 10/01/20 03:49 FSBS Laboratory Tests Test 09/30/20 16:42 09/30/20 20:40 Range/Units Bedside Glucose (Misc Panel) 262 331 70-105 MG/DL Discharge Medications Scheduled Acetaminophen (Acetaminophen 8 Hour) 650 Mg Tablet.er, 1 TAB PO TID Aspirin (Aspirin EC) 81 Mg Tablet.dr, 81 MG PO DAILY, (Reported) Atorvastatin Calcium (Atorvastatin Calcium) 80 Mg Tablet, 80 MG PO DAILY, (Reported) Insulin Glargine,Hum.rec.anlog (Basaglar Kwikpen U-100) 100 Unit/1 Ml Insuln.pen, 42 UNITS SC DAILY, (Reported) Lisinopril (Lisinopril) 10 Mg Tablet, 10 MG PO DAILY, (Reported) Topiramate (Topiramate) 25 Mg Tablet, 25 MG PO QHS, (Reported) Scheduled PRN Albuterol Sulfate (Albuterol Sulfate Hfa) 8.5 Gm Hfa.aer.ad, 2 PUFFS INH QID PRN for SOB/WHEEZING, (Reported) Epinephrine (Epinephrine) 0.3 Mg/0.3 Ml Auto.injct, 0.3 MG IM ASDIRECTED PRN for ANAPHYLAXIS, (Reported) Allergies Coded Allergies: bee venom protein (honey bee) (Verified Allergy, Severe, 03/21/19) codeine (Verified Allergy, Severe, SWELLING, 09/30/20) measles, mumps, and rubella vaccine (Verified Allergy, Severe, SWELLING/HIVES, 09/30/20) REHAN SURESH DO Oct 01, 2020 13:00
== END 2020-10-01 11:22 | disposition home or self-care (01) ==
LOC: M ED 00:27 → M ED INP 00:28 → INTOOBSV 00:28 → ENRESERV 09:20 → M PCU 10:07
PROVIDERS: ADMIT Internal Medicine; ATTEND Internal Medicine
DX: R07.89 Other chest pain (principal); I10 Essential (primary) hypertension; E11.9 Type 2 diabetes mellitus without complications; E78.49 Other hyperlipidemia; J44.9 Chronic obstructive pulmonary disease, unspecified; G43.909 Migraine, unspecified, not intractable, without status migrainosus; M94.0 Chondrocostal junction syndrome [Tietze]; Z79.82 Long term (current) use of aspirin; Z79.4 Long term (current) use of insulin; Z79.899 Other long term (current) drug therapy; Z91.030 Bee allergy status; Z88.5 Allergy status to narcotic agent; Z88.7 Allergy status to serum and vaccine; F17.218 Nicotine dependence, cigarettes, with other nicotine-induced disorders
CPT/HCPCS: 36415; 71045; 71275; 80048; 80053; 80076; 82550; 82553; 83690; 83735; 83880; 84145; 85025; 85610; 85652; 86140; 87631; 93005; 93041; 93306; 94640; 94760; 96372; 96374; 96375; 96376; 97161; 99285; J1100; J1650; J1885; J2270; Q9967

== ENCOUNTER 2020-11-15 20:11 | Emergency (ER) | payer OTHER ==
[~2020-11-15] VITALS: Ht 172.7 cm; Wt 117.6 kg
[~2020-11-15 20:11] MED LIST changes: +ALBU8.5H INH; +ASPI81TA26 PO; +BASA100I SC; +EPIN0.3I11 IM; +LISI10TA22 PO; +QC A650T3 PO
[2020-11-15] MEDS ORDERED: GABAPENTIN 300 MG CAP PO ONE (22:20)
[2020-11-15] MEDS ORDERED: CYCLOBENZAPRINE 10MG TABLET PO ONE (22:20)
[2020-11-15] MEDS ORDERED: KETOROLAC TROMETHAMINE 10 MG TAB PO ONE (22:20)
--- NOTE | 2020-11-15 22:46 | REPVR ---
PROCEDURE INFORMATION: Exam: XR Left Hip Exam date and time: 11/15/2020 10:13 PM Age: 55 years old Clinical indication: Hip pain; Left hip; Prior surgery; Surgery date: 6+ months; Additional info: "gave out" TECHNIQUE: Imaging protocol: XR Left hip. Views: 2 or 3 views hip with pelvis when performed. COMPARISON: 1. CR Hip, Ap,Lat 2019-06-05 13:35 2. CR Hip, Ap,Lat LEFT 2019-03-02 11:11 3. CR Hip, Ap,Lat 2015-08-10 03:30 FINDINGS: Bones/joints: Left hip arthroplasty intact. Severe right hip degenerative joint disease. Soft tissues: Unremarkable. IMPRESSION: 1. No acute osseous abnormality. 2. Severe right hip degenerative joint disease. Electronically signed by: Stephen Cavazos On 11/15/2020 22:46:55 PM
[2020-11-16] MEDS ORDERED: CYCL5TAB PO (00:52)
[2020-11-16 00:58] VITALS: BP 146/80
== END 2020-11-16 01:00 | disposition home or self-care (01) ==
LOC: M ED 20:11
DX: S76.011A Strain of muscle, fascia and tendon of right hip, initial encounter (principal); X58.XXXA Exposure to other specified factors, initial encounter; Y92.89 Other specified places as the place of occurrence of the external cause; I10 Essential (primary) hypertension; J44.9 Chronic obstructive pulmonary disease, unspecified; J45.909 Unspecified asthma, uncomplicated; E78.5 Hyperlipidemia, unspecified; E03.9 Hypothyroidism, unspecified; G47.33 Obstructive sleep apnea (adult) (pediatric); I25.2 Old myocardial infarction; Z79.899 Other long term (current) drug therapy; Z79.82 Long term (current) use of aspirin; Z79.4 Long term (current) use of insulin; Z88.5 Allergy status to narcotic agent; Z88.7 Allergy status to serum and vaccine; F17.210 Nicotine dependence, cigarettes, uncomplicated

== ENCOUNTER → 2021-06-10 | Outpatient (CLI) | payer OTHER ==
[~2021-06-10] MED LIST changes: +CYCL5TAB PO
--- NOTE | 2021-06-10 09:22 | REP ---
INDICATION: SMOKER. COMPARISON: CTA 05/26/2020, 09/30/2020 TECHNIQUE: Low-dose screening lung CT protocol. FINDINGS: Studies shows stable fibro atelectatic change in the inferior lingular segment at the anterior left lung base and also in the medial segment of the right middle lobe to a lesser extent but both stable from previous studies. There is a stable pleural based nodule medial basal segment of the left lower lobe on image 74 measuring 5.9 mm. A 3.6 mm nodule in the lateral segment middle lobe anterolaterally on the right side in the anterior axillary line, pleural based and unchanged. There are no other nodules, infiltrates, masses, calcified pleural plaques or other acute finding. Bones are without acute abnormality. The aorta has some calcifications but no aneurysm. IMPRESSION: 1. Lung RADS category 1, negative. Presence of pleural based nodules unchanged for over a year and some fibro atelectatic change in the lingula and medial segment right middle lobe. No new or acute findings. Patients with this category of finding of less than 1% chance of malignancy at the time of the examination. For patients at high risk of developing lung malignancy, annual low-dose lung screening CT should be continued. <Electronically signed by Sotero Mccarthy > 06/10/21 0918
== END ==
LOC: M RAD 08:41
PROVIDERS: ATTEND Family Medicine
DX: F17.210 Nicotine dependence, cigarettes, uncomplicated (principal); R91.8 Other nonspecific abnormal finding of lung field

== ENCOUNTER → 2021-10-13 | Outpatient (CLI) | payer OTHER | LOC: M PAIN 08:30 | PROVIDERS: ATTEND Nurse Practitioner Family | DX: M54.50 Low back pain, unspecified (principal); M54.16 Radiculopathy, lumbar region; M79.18 Myalgia, other site; G43.909 Migraine, unspecified, not intractable, without status migrainosus; F17.210 Nicotine dependence, cigarettes, uncomplicated; Z96.642 Presence of left artificial hip joint; Z88.5 Allergy status to narcotic agent; Z88.7 Allergy status to serum and vaccine; Z91.030 Bee allergy status; E66.01 Morbid (severe) obesity due to excess calories; Z68.41 Body mass index [BMI] 40.0-44.9, adult; Z79.82 Long term (current) use of aspirin; Z79.899 Other long term (current) drug therapy ==

== ENCOUNTER → 2021-10-13 | Outpatient (CLI) | payer OTHER | LOC: M RAD 10:26 | PROVIDERS: ATTEND Anesthesiology | DX: M54.16 Radiculopathy, lumbar region (principal) ==

== ENCOUNTER → 2021-12-03 | Outpatient (CLI) | payer OTHER ==
[2021-12-03 08:51] LABS: BASO % 0.4 % (0.0-1.0); EOS # 0.2 10^3/uL (0.0-0.5); EOS % 2.2 % (0.0-3.0); HEMATOCRIT 44.9 % (36.0-47.0); LYMPH # 1.8 10^3/uL (1.5-5.0); MEAN CORPUSCULAR HEMOGLOBIN 30.1 pg (27.0-33.0); MEAN CORPUSCULAR HGB CONC 33.4 g/dl (32.0-36.5); MONO # 0.5 10^3/uL (0.0-0.8); MONO % 6.3 % (2.0-8.0); NEUTROPHILS % 66.7 % (36.0-66.0); PLATELET COUNT, AUTOMATED 283 10^3/uL (150-450); RED BLOOD COUNT 4.99 10^6/uL (4.00-5.40); WHITE BLOOD COUNT 7.4 10^3/uL (4.0-10.0)
[2021-12-03 09:00] LABS: APPEARANCE, URINE CLOUDY (CLEAR); BACTERIA, URINE AUTO 1+ (NEGATIVE); BILIRUBIN, URINE AUTO NEGATIVE (NEGATIVE); BLOOD, URINE BLOOD NEGATIVE (NEGATIVE); COLOR, URINE YELLOW (YELLOW); GLUCOSE, URINE (UA) AUTO 3+ mg/dL (NEGATIVE); KETONE, URINE AUTO NEGATIVE (NEGATIVE); LEUKOCYTE ESTERASE, URINE AUTO 1+ (NEGATIVE); NITRITE, URINE AUTO NEGATIVE (NEGATIVE); PROTEIN, URINE AUTO NEGATIVE (NEGATIVE); RBC, URINE AUTO 1 /HPF (0-3); SPECIFIC GRAVITY URINE AUTO 1.024 (1.002-1.035); SQUAMOUS EPITHELIAL CELL UR AU 0 /HPF (0-6); UROBILINOGEN, URINE AUTO 0.2 mg/dL (0.0-2.0); WBC, URINE AUTO 2 /HPF (0-3)
[2021-12-03 09:23] LABS: MALB URINE SIEMENS 61.1 MG/L; MAU/CREAT RATIO 37.2 MCG/MG (0.0-30.0)
[2021-12-03 09:24] LABS: ALBUMIN 3.7 GM/DL (3.2-5.2); ALT/SGPT 27 U/L (12-78); BILIRUBIN,TOTAL 0.4 MG/DL (0.2-1.0); BLOOD UREA NITROGEN 12 MG/DL (7-18); CALCIUM LEVEL 9.7 MG/DL (8.5-10.1); CARBON DIOXIDE LEVEL 26 MEQ/L (21-32); CHLORIDE LEVEL 104 MEQ/L (98-107); CHOLESTEROL LEVEL 221 MG/DL (<200); CHOLESTEROL RISK RATIO 5.022 (<5); CREATININE FOR GFR 0.63 MG/DL (0.55-1.30); FREE T4 0.93 NG/DL (0.76-1.46); GLOMERULAR FILTRATION RATE > 60.0 (>51); GLUCOSE, FASTING 261 MG/DL (70-100); HDL CHOLESTEROL 44 MG/DL (>40); LDL CHOLESTEROL 128 MG/DL (<100); NON-HDL-C 177 MG/DL; POTASSIUM SERUM 4.4 MEQ/L (3.5-5.1); SODIUM LEVEL 139 MEQ/L (136-145); TOTAL PROTEIN 7.3 GM/DL (6.4-8.2); TRIGLYCERIDES LEVEL 245 MG/DL (<150)
[2021-12-03 09:37] LABS: ERYTHROCYTE SEDIMENTATION RATE 12 mm/hr (0-30)
[2021-12-04 19:11] LABS: ANA (HEP2) Negative (.)
== END ==
LOC: M LAB 08:14
PROVIDERS: ATTEND Family Medicine
DX: R63.4 Abnormal weight loss (principal); I10 Essential (primary) hypertension; E11.9 Type 2 diabetes mellitus without complications; M51.17 Intervertebral disc disorders with radiculopathy, lumbosacral region

== ENCOUNTER 2022-02-12 03:21 | Emergency (ER) | payer OTHER ==
[~2022-02-12] VITALS: Ht 165.1 cm; Wt 115.0 kg
[2022-02-12] MEDS ORDERED: diazePAM 10MG/2ML SYRINGE (J3360 PER 5MG) IV ONE (04:40)
[2022-02-12 07:21] VITALS: BP 162/89
== END 2022-02-12 08:30 | disposition home or self-care (01) ==
LOC: M ED 03:21
DX: M25.551 Pain in right hip (principal); M16.11 Unilateral primary osteoarthritis, right hip; Z79.899 Other long term (current) drug therapy; Z79.82 Long term (current) use of aspirin; Z79.4 Long term (current) use of insulin; Z88.5 Allergy status to narcotic agent; Z88.7 Allergy status to serum and vaccine; Z91.030 Bee allergy status
CPT/HCPCS: 73502; 96374; 99284; J3360

== ENCOUNTER 2022-04-22 23:25 | Emergency (ER) | payer OTHER ==
[~2022-04-22] VITALS: Ht 165.1 cm; Wt 113.4 kg
[2022-04-23] MEDS ORDERED: METF-838 PO (00:37)
[2022-04-23] MEDS ORDERED: MORPHINE 10 MG/ML 1ML VIAL IM ONE (04:20)
[2022-04-23 06:31] VITALS: BP 118/59
[2022-04-23] MEDS ORDERED: PERC5TAB12 PO (06:42)
[2022-04-23 06:50] VITALS: O2SAT 98
== END 2022-04-23 07:07 | disposition home or self-care (01) ==
LOC: M ED 23:25 → EDBD 23:25 → M ED 04-23 07:07
DX: M16.11 Unilateral primary osteoarthritis, right hip (principal); E11.9 Type 2 diabetes mellitus without complications; Z79.82 Long term (current) use of aspirin; Z79.51 Long term (current) use of inhaled steroids; Z79.84 Long term (current) use of oral hypoglycemic drugs; Z79.899 Other long term (current) drug therapy; Z79.4 Long term (current) use of insulin; Z96.642 Presence of left artificial hip joint; Z79.891 Long term (current) use of opiate analgesic
CPT/HCPCS: 73502; 73552; 96372; 99285; J2270

== ENCOUNTER → 2022-05-31 | Outpatient (REF) | payer OTHER ==
[~2022-05-31] MED LIST changes: +METF-838 PO; +PERC5TAB12 PO
[2022-05-31 17:37] LABS: BASO % 0.1 % (0.0-1.0); EOS # 0.1 10^3/uL (0.0-0.5); EOS % 1.2 % (0.0-3.0); HEMATOCRIT 42.5 % (36.0-47.0); HEMOGLOBIN 13.9 g/dl (12.0-15.5); LYMPH # 2.2 10^3/uL (1.5-5.0); LYMPH % 29.1 % (24.0-44.0); MEAN CORPUSCULAR HEMOGLOBIN 30.8 pg (27.0-33.0); MEAN CORPUSCULAR HGB CONC 32.7 g/dl (32.0-36.5); MEAN CORPUSCULAR VOLUME 94.2 fl (80.0-96.0); MONO # 0.6 10^3/uL (0.0-0.8); MONO % 8.2 % (2.0-8.0); NEUTROPHILS # 4.5 10^3/uL (1.5-8.5); NEUTROPHILS % 61.3 % (36.0-66.0); PLATELET COUNT, AUTOMATED 288 10^3/uL (150-450); RED BLOOD COUNT 4.51 10^6/uL (4.00-5.40); WHITE BLOOD COUNT 7.4 10^3/uL (4.0-10.0)
[2022-05-31 18:21] LABS: ALBUMIN 3.6 GM/DL (3.2-5.2); ALT/SGPT 28 U/L (12-78); BILIRUBIN,TOTAL 0.5 MG/DL (0.2-1.0); BLOOD UREA NITROGEN 11 MG/DL (7-18); CALCIUM LEVEL 9.4 MG/DL (8.5-10.1); CARBON DIOXIDE LEVEL 30 MEQ/L (21-32); CHLORIDE LEVEL 104 MEQ/L (98-107); CHOLESTEROL LEVEL 196 MG/DL (<200); CHOLESTEROL RISK RATIO 4.666 (<5); CREATININE FOR GFR 0.66 MG/DL (0.55-1.30); GLOMERULAR FILTRATION RATE > 60.0 (>51); GLUCOSE, FASTING 206 MG/DL (70-100); HDL CHOLESTEROL 42 MG/DL (>40); LDL CHOLESTEROL 100 MG/DL (<100); NON-HDL-C 154 MG/DL; SODIUM LEVEL 141 MEQ/L (136-145); TOTAL PROTEIN 7.2 GM/DL (6.4-8.2); TRIGLYCERIDES LEVEL 271 MG/DL (<150)
== END ==
LOC: M LAB REF 16:40
PROVIDERS: ATTEND Pediatrics
DX: E11.40 Type 2 diabetes mellitus with diabetic neuropathy, unspecified (principal)

== ENCOUNTER → 2022-09-28 | Outpatient (CLI) | payer OTHER | LOC: M WHC 14:18 | PROVIDERS: ATTEND Pediatrics | DX: Z12.31 Encounter for screening mammogram for malignant neoplasm of breast (principal); Z13.820 Encounter for screening for osteoporosis ==

== ENCOUNTER → 2023-02-13 | Outpatient (REF) | payer OTHER ==
[2023-02-13 12:43] LABS: CREATININE, URINE 34.7 MG/DL
[2023-02-13 12:44] LABS: MAU/CREAT RATIO 11.5 MCG/MG (0.0-30.0)
[2023-02-13 17:36] LABS: BASO % 0.3 % (0.0-1.0); EOS # 0.1 10^3/uL (0.0-0.5); EOS % 1.4 % (0.0-3.0); HEMATOCRIT 44.6 % (36.0-47.0); HEMOGLOBIN 14.4 g/dl (12.0-15.5); LYMPH # 2.2 10^3/uL (1.5-5.0); LYMPH % 27.3 % (24.0-44.0); MEAN CORPUSCULAR HEMOGLOBIN 30.1 pg (27.0-33.0); MEAN CORPUSCULAR HGB CONC 32.3 g/dl (32.0-36.5); MEAN CORPUSCULAR VOLUME 93.1 fl (80.0-96.0); MONO # 0.5 10^3/uL (0.0-0.8); MONO % 6.8 % (2.0-8.0); NEUTROPHILS # 5.1 10^3/uL (1.5-8.5); NEUTROPHILS % 63.8 % (36.0-66.0); PLATELET COUNT, AUTOMATED 280 10^3/uL (150-450); RED BLOOD COUNT 4.79 10^6/uL (4.00-5.40)
[2023-02-13 17:55] LABS: ALBUMIN 3.9 G/DL (3.2-5.2); ALKALINE PHOSPHATASE 85 U/L (46-116); ALT/SGPT 17 U/L (7.0-40); AST/SGOT < 8 U/L (<34); BILIRUBIN,TOTAL 0.4 MG/DL (0.3-1.2); BLOOD UREA NITROGEN 10 MG/DL (9-23); CALCIUM LEVEL 9.9 MG/DL (8.5-10.1); CARBON DIOXIDE LEVEL 26 MMOL/L (20-31); CHLORIDE LEVEL 104 MMOL/L (98-107); CREATININE FOR GFR 0.53 MG/DL (0.55-1.30); GLOMERULAR FILTRATION RATE > 60.0 (>51); GLUCOSE, FASTING 136 MG/DL (60-100); POTASSIUM SERUM 4.6 MMOL/L (3.5-5.1); SODIUM LEVEL 142 MMOL/L (136-145); TOTAL PROTEIN 7.2 G/DL (5.7-8.2)
[2023-02-13 18:02] LABS: INR 0.94; PROTHROMBIN TIME 12.8 SECONDS (12.5-14.5)
== END ==
LOC: M LAB REF 11:42
PROVIDERS: ATTEND Pediatrics
DX: E11.40 Type 2 diabetes mellitus with diabetic neuropathy, unspecified (principal)

== ENCOUNTER → 2023-04-21 | Outpatient (REF) | payer OTHER ==
[2023-04-21 17:25] LABS: CHOLESTEROL RISK RATIO 3.29 (<5); HDL CHOLESTEROL 44.3 MG/DL (>40); LDL CHOLESTEROL 53.5 MG/DL (<100); NON-HDL-C 101.7 MG/DL
[2023-04-21 17:28] LABS: HEMOGLOBIN A1c 8.6 % (4.0-6.0)
== END ==
LOC: M LAB REF 16:05
PROVIDERS: ATTEND Pediatrics
DX: E11.40 Type 2 diabetes mellitus with diabetic neuropathy, unspecified (principal); E78.5 Hyperlipidemia, unspecified

== ENCOUNTER 2023-06-27 08:27 | Emergency (ER) | payer OTHER ==
[~2023-06-27] VITALS: Ht 165.1 cm; Wt 108.7 kg
[2023-06-27 11:29] VITALS: BP 120/73; TEMP 97.6; O2SAT 95
== END 2023-06-27 11:31 | disposition home or self-care (01) ==
LOC: M ED 08:27
DX: J09.X2 Influenza due to identified novel influenza A virus with other respiratory manifestations (principal); E11.9 Type 2 diabetes mellitus without complications; I10 Essential (primary) hypertension; I25.2 Old myocardial infarction; J44.9 Chronic obstructive pulmonary disease, unspecified; Z79.82 Long term (current) use of aspirin; Z79.4 Long term (current) use of insulin; Z79.899 Other long term (current) drug therapy; Z88.5 Allergy status to narcotic agent; Z88.7 Allergy status to serum and vaccine; Z91.030 Bee allergy status

== ENCOUNTER → 2023-08-22 | Outpatient (REF) | payer OTHER ==
[2023-08-22 17:54] LABS: CREATININE, URINE 102.1 MG/DL; MAU/CREAT RATIO 14.6 MCG/MG (0.0-30.0)
[2023-08-22 18:42] LABS: HEMOGLOBIN A1c 8.1 % (4.0-6.0)
[2023-08-22 18:51] LABS: ALKALINE PHOSPHATASE 75 U/L (46-116); ALT/SGPT 21 U/L (7.0-40); AST/SGOT 10 U/L (<34); BILIRUBIN,TOTAL 0.6 MG/DL (0.3-1.2); BLOOD UREA NITROGEN 11 MG/DL (9-23); CALCIUM LEVEL 10.2 MG/DL (8.5-10.1); CARBON DIOXIDE LEVEL 29 MMOL/L (20-31); CHLORIDE LEVEL 106 MMOL/L (98-107); CREATININE FOR GFR 0.48 MG/DL (0.55-1.30); GLOMERULAR FILTRATION RATE > 60.0 (>51); GLUCOSE, FASTING 134 MG/DL (60-100); POTASSIUM SERUM 4.8 MMOL/L (3.5-5.1); SODIUM LEVEL 136 MMOL/L (136-145); TOTAL PROTEIN 7.7 G/DL (5.7-8.2)
== END ==
LOC: M LAB REF 16:23
PROVIDERS: ATTEND Pediatrics
DX: E11.40 Type 2 diabetes mellitus with diabetic neuropathy, unspecified (principal)

== ENCOUNTER → 2023-10-04 | Outpatient (CLI) | payer OTHER | LOC: M WHC 09:34 | PROVIDERS: ATTEND Pediatrics | DX: Z12.31 Encounter for screening mammogram for malignant neoplasm of breast (principal) ==

== ENCOUNTER → 2023-10-05 | Outpatient (CLI) | payer OTHER | LOC: M RAD 12:01 | PROVIDERS: ATTEND Pediatrics | DX: Z12.2 Encounter for screening for malignant neoplasm of respiratory organs (principal) ==

== ENCOUNTER → 2024-01-15 | Outpatient (REF) | payer OTHER ==
[2024-01-16 13:11] LABS: CREATININE, URINE 203.9 MG/DL; MAU/CREAT RATIO 39.2 MCG/MG (0.0-30.0)
== END ==
LOC: M LAB REF 11:33
PROVIDERS: ATTEND Pediatrics
DX: E11.40 Type 2 diabetes mellitus with diabetic neuropathy, unspecified (principal)

== ENCOUNTER → 2024-03-12 | Outpatient (CLI) | payer OTHER ==
[2024-03-12 13:13] LABS: ALBUMIN 3.5 G/DL (3.2-5.2); ALKALINE PHOSPHATASE 70 U/L (46-116); ALT/SGPT 30 U/L (7.0-40); AST/SGOT 12 U/L (<34); BILIRUBIN,TOTAL 0.5 MG/DL (0.3-1.2); BLOOD UREA NITROGEN 10 MG/DL (9-23); CALCIUM LEVEL 9.4 MG/DL (8.3-10.6); CARBON DIOXIDE LEVEL 27 MMOL/L (20-31); CHLORIDE LEVEL 108 MMOL/L (98-107); CHOLESTEROL LEVEL 132 MG/DL (<200); CHOLESTEROL RISK RATIO 2.64 (<5); CREATININE FOR GFR 0.54 MG/DL (0.55-1.30); GLOMERULAR FILTRATION RATE > 60.0 (>45); GLUCOSE, FASTING 149 MG/DL (74-106); HDL CHOLESTEROL 49.9 MG/DL (>40); LDL CHOLESTEROL 51.7 MG/DL (<100); NON-HDL-C 82.1 MG/DL; POTASSIUM SERUM 4.1 MMOL/L (3.5-5.1); SODIUM LEVEL 142 MMOL/L (136-145); TOTAL PROTEIN 6.8 G/DL (5.7-8.2); TRIGLYCERIDES LEVEL 152 MG/DL (<150)
== END ==
LOC: M LAB 11:59
PROVIDERS: ATTEND Pediatrics
DX: E11.40 Type 2 diabetes mellitus with diabetic neuropathy, unspecified (principal); E78.5 Hyperlipidemia, unspecified

== ENCOUNTER 2024-05-19 09:00 | Emergency (ER) | payer OTHER ==
[2024-05-19 09:02] VITALS: TEMP 96.9
[2024-05-19 09:47] LABS: BASO % 0.3 % (0.0-1.0); EOS % 0.5 % (0.0-3.0); HEMATOCRIT 38.5 % (36.0-47.0); HEMOGLOBIN 13.2 g/dl (12.0-15.5); LYMPH # 1.5 10^3/uL (1.5-5.0); LYMPH % 24.8 % (24.0-44.0); MEAN CORPUSCULAR HEMOGLOBIN 31.2 pg (27.0-33.0); MEAN CORPUSCULAR HGB CONC 34.3 g/dl (32.0-36.5); MONO # 0.4 10^3/uL (0.0-0.8); MONO % 6.7 % (2.0-8.0); PLATELET COUNT, AUTOMATED 318 10^3/uL (150-450); RED BLOOD COUNT 4.23 10^6/uL (4.00-5.40)
[2024-05-19 09:55] LABS: ABG BASE EXCESS 0.9 (-2.0-2.0); ABG O2 SATURATION 97.7 % (95.0-99.0); ABG PARTIAL PRESSURE CO2 26.3 mmHg (35.0-45.0); ABG PARTIAL PRESSURE O2 93.9 mmHg (75.0-100.0); ABG STANDARD HCO3 25.3 MMOL/L. (22.0-26.0); ABG TOTAL CO2 22.8 MMOL/L (23.0-31.0); ABG pH (ARTERIAL) 7.541 UNITS (7.350-7.450)
[2024-05-19 10:10] VITALS: BP 178/97
[2024-05-19 10:10] LABS: LIPASE 30 U/L (12-53)
[2024-05-19] MEDS: NITROGLYCERIN 2% OINT 1 GM *U/D* PKT TOP ONE (10:10)
[2024-05-19 10:13] LABS: ALBUMIN 3.6 G/DL (3.2-5.2); ALKALINE PHOSPHATASE 71 U/L (46-116); ALT/SGPT 41 U/L (7.0-40); AST/SGOT 24 U/L (<34); BILIRUBIN,DIRECT 0.2 MG/DL (<0.4); BILIRUBIN,TOTAL 0.8 MG/DL (0.3-1.2); BLOOD UREA NITROGEN 11 MG/DL (9-23); CALCIUM LEVEL 9.8 MG/DL (8.3-10.6); CARBON DIOXIDE LEVEL 23 MMOL/L (20-31); CHLORIDE LEVEL 106 MMOL/L (98-107); CK-MB VALUE MASS < 1.0 NG/ML (<3.6); CREATININE FOR GFR 0.54 MG/DL (0.55-1.30); GLOMERULAR FILTRATION RATE > 60.0 (>45); GLUCOSE, FASTING 215 MG/DL (74-106); POTASSIUM SERUM 4.3 MMOL/L (3.5-5.1); SODIUM LEVEL 137 MMOL/L (136-145); TOTAL PROTEIN 7.4 G/DL (5.7-8.2)
[2024-05-19 10:15] LABS: ACETONE/KETONE 0.31 MMOL/L (0.02-0.27); CPK CREATINE PHOSPHOKINASE 96 U/L (34-145); MB/CK RELATIVE INDEX 1.04 (< OR =4)
[2024-05-19 10:18] LABS: OSMOLALITY SERUM 297 MOSM/KG (275-295)
[2024-05-19 11:33] LABS: CK-MB VALUE MASS < 1.0 NG/ML (<3.6)
[2024-05-19 11:34] LABS: CPK CREATINE PHOSPHOKINASE 87 U/L (34-145); MB/CK RELATIVE INDEX 1.14 (< OR =4)
[2024-05-19] MEDS: methylPREDNISolone 40MG 1ML VIAL IV ONE (14:42)
[2024-05-19] MEDS ORDERED: PRED20TA PO (14:44)
[2024-05-19 14:46] VITALS: BP 159/90; O2SAT 94
== END 2024-05-19 14:54 | disposition home or self-care (01) ==
LOC: M ED 09:00
DX: J44.89 Other specified chronic obstructive pulmonary disease (principal); I25.2 Old myocardial infarction; E11.9 Type 2 diabetes mellitus without complications; I10 Essential (primary) hypertension; G43.909 Migraine, unspecified, not intractable, without status migrainosus; Z79.82 Long term (current) use of aspirin; Z79.4 Long term (current) use of insulin; Z79.899 Other long term (current) drug therapy; Z88.5 Allergy status to narcotic agent; Z88.7 Allergy status to serum and vaccine; Z91.030 Bee allergy status
CPT/HCPCS: 36600; 71045; 80048; 80076; 82010; 82550; 82553; 82803; 83036; 83690; 83880; 83930; 84484; 85025; 87040; 87486; 87581; 87633; 87798; 93041; 94760; 96374; 99285; J2919

== ENCOUNTER 2024-08-02 16:15 | Emergency (ER) | payer OTHER ==
[~2024-08-02] VITALS: Ht 165.1 cm; Wt 141.2 kg
[~2024-08-02 16:15] MED LIST changes: -CYCL5TAB PO; +CYCL5TAB4 PO
[2024-08-02 16:49] LABS: HEMATOCRIT 40.7 % (36.0-47.0); HEMOGLOBIN 13.6 g/dl (12.0-15.5); MEAN CORPUSCULAR HEMOGLOBIN 30.6 pg (27.0-33.0); MEAN CORPUSCULAR HGB CONC 33.4 g/dl (32.0-36.5); MEAN CORPUSCULAR VOLUME 91.7 fl (80.0-96.0); PLATELET COUNT, AUTOMATED 281 10^3/uL (150-450); RED BLOOD COUNT 4.44 10^6/uL (4.00-5.40); WHITE BLOOD COUNT 7.5 10^3/uL (4.0-10.0)
[2024-08-02] MEDS: methylPREDNISolone 125MG 2ML VIAL IV ONE (17:06)
[2024-08-02 17:13] LABS: ATYPICAL LYMPH 20 % (0-5); LYMPHOCYTES 17 % (16-44); MONOCYTES 8 % (0-5); NEUTROPHILS 55 % (28-66); PLATELET ESTIMATE NORMAL (NORMAL)
[2024-08-02 17:20] LABS: ALBUMIN 3.8 G/DL (3.2-5.2); ALKALINE PHOSPHATASE 68 U/L (35-104); ALT/SGPT 48 U/L (7.0-40); AST/SGOT 37 U/L (<34); BILIRUBIN,DIRECT 0.2 MG/DL (<0.4); BILIRUBIN,TOTAL 0.6 MG/DL (0.3-1.2); BLOOD UREA NITROGEN 23 MG/DL (9-23); CALCIUM LEVEL 10.5 MG/DL (8.3-10.6); CARBON DIOXIDE LEVEL 22 MMOL/L (20-31); CHLORIDE LEVEL 104 MMOL/L (98-107); CK-MB VALUE MASS 1.1 NG/ML (<3.6); CREATININE FOR GFR 0.59 MG/DL (0.55-1.30); GLOMERULAR FILTRATION RATE > 60.0 (>45); GLUCOSE, FASTING 170 MG/DL (74-106); POTASSIUM SERUM 4.4 MMOL/L (3.5-5.1); SODIUM LEVEL 137 MMOL/L (136-145); TOTAL PROTEIN 7.7 G/DL (5.7-8.2)
[2024-08-02 17:21] LABS: THYROXINE (T4) 10.3 UG/DL (4.5-10.9)
[2024-08-02 17:22] LABS: THYROID STIMULATING HORMONE 3.187 uIU/ML (0.55-4.78)
[2024-08-02 17:24] LABS: CPK CREATINE PHOSPHOKINASE 176 U/L (34-145); MB/CK RELATIVE INDEX 0.62 (< OR =4)
[2024-08-02] MEDS: IPRATROPIUM 0.5MG/ALBUTEROL 2.5MG INH SOL UD 3ML (DUONEB) NEB ONE (17:33)
[2024-08-02] MEDS: ONDANSETRON 4MG 2ML VIAL IV ONE (18:48)
[2024-08-02 20:12] VITALS: O2SAT 90
[2024-08-02] MEDS ORDERED: ALBU8.5H INH (20:19)
[2024-08-02] MEDS ORDERED: PRED10TA2 PO (20:19)
[2024-08-02 20:30] VITALS: BP 136/67; TEMP 98.9; O2SAT 86
== END 2024-08-02 20:34 | disposition home or self-care (01) ==
LOC: EDBD 16:15 → M ED 16:15
DX: J44.1 Chronic obstructive pulmonary disease with (acute) exacerbation (principal); B97.81 Human metapneumovirus as the cause of diseases classified elsewhere; I10 Essential (primary) hypertension; E11.9 Type 2 diabetes mellitus without complications; E78.5 Hyperlipidemia, unspecified; K75.81 Nonalcoholic steatohepatitis (NASH); Z87.891 Personal history of nicotine dependence; Z79.82 Long term (current) use of aspirin; Z79.4 Long term (current) use of insulin; Z79.899 Other long term (current) drug therapy; Z91.030 Bee allergy status; Z88.5 Allergy status to narcotic agent; Z88.7 Allergy status to serum and vaccine
CPT/HCPCS: 71045; 80048; 80076; 82550; 82553; 84436; 84443; 84484; 85025; 87486; 87581; 87633; 87798; 93005; 93041; 94640; 94760; 96374; 96375; 99285; J2405; J2919

== ENCOUNTER 2024-09-11 09:39 | Inpatient (IN) | payer OTHER ==
[~2024-09-11] VITALS: Ht 165.1 cm; Wt 120.8 kg
[~2024-09-11 09:39] MED LIST changes: +PRED10TA2 PO
[2024-09-11] MEDS ORDERED: TELM1TAB37 PO (09:55)
[2024-09-11] MEDS ORDERED: ALBU2.5V10 NEB (09:55)
[2024-09-11] MEDS ORDERED: SEMA14TA2 PO (09:55)
[2024-09-11] MEDS ORDERED: TREL1AER PO (09:55)
[2024-09-11 10:23] LABS: VENOUS BASE EXCESS 0.6 (-2.0-2.0); VENOUS HCO3 25.9 MMOL/L (23.0-27.0); VENOUS O2 SATURATION 71.5 % (60.0-80.0); VENOUS PARTIAL PRESSURE CO2 43.7 mmHg (38.0-50.0); VENOUS PARTIAL PRESSURE O2 36.6 mmHg (30.0-50.0); VENOUS STANDARD HCO3 24.5 MMOL/L; VENOUS TOTAL CO2 27.2 MMOL/L (24.0-28.0)
[2024-09-11 10:32] LABS: BASO % 0.2 % (0.0-1.0); EOS # 0.1 10^3/uL (0.0-0.5); EOS % 1.2 % (0.0-3.0); HEMATOCRIT 37.5 % (36.0-47.0); HEMOGLOBIN 12.4 g/dl (12.0-15.5); LYMPH # 0.8 10^3/uL (1.5-5.0); LYMPH % 16.5 % (24.0-44.0); MEAN CORPUSCULAR HEMOGLOBIN 30.2 pg (27.0-33.0); MEAN CORPUSCULAR HGB CONC 33.1 g/dl (32.0-36.5); MEAN CORPUSCULAR VOLUME 91.2 fl (80.0-96.0); MONO # 0.6 10^3/uL (0.0-0.8); NEUTROPHILS # 3.4 10^3/uL (1.5-8.5); NEUTROPHILS % 69.5 % (36.0-66.0); PLATELET COUNT, AUTOMATED 294 10^3/uL (150-450); RED BLOOD COUNT 4.11 10^6/uL (4.00-5.40); WHITE BLOOD COUNT 4.9 10^3/uL (4.0-10.0)
[2024-09-11 11:32] LABS: ALBUMIN 3.5 G/DL (3.2-5.2); ALKALINE PHOSPHATASE 63 U/L (35-104); ALT/SGPT 41 U/L (7.0-40); AST/SGOT 23 U/L (<34); BILIRUBIN,DIRECT 0.2 MG/DL (<0.4); BILIRUBIN,TOTAL 0.6 MG/DL (0.3-1.2); BLOOD UREA NITROGEN 8 MG/DL (9-23); CALCIUM LEVEL 9.1 MG/DL (8.3-10.6); CARBON DIOXIDE LEVEL 28 MMOL/L (20-31); CHLORIDE LEVEL 101 MMOL/L (98-107); CREATININE FOR GFR 0.46 MG/DL (0.55-1.30); GLOMERULAR FILTRATION RATE > 60.0 (>45); GLUCOSE, FASTING 192 MG/DL (74-106); POTASSIUM SERUM 3.6 MMOL/L (3.5-5.1); SODIUM LEVEL 141 MMOL/L (136-145); TOTAL PROTEIN 6.5 G/DL (5.7-8.2)
[2024-09-11] MEDS: IPRATROPIUM 0.5MG/ALBUTEROL 2.5MG INH SOL UD 3ML (DUONEB) NEB ONE (12:58)
[2024-09-11] MEDS ORDERED: GLUCOSE 4 GM CHEW PO PRN (14:20)
[2024-09-11] MEDS ORDERED: MOM 30ML SUSPENSION UDC PO PRN (14:20)
[2024-09-11] MEDS ORDERED: GLUCAGON INJ 1MG VIAL SC PRN (14:20)
[2024-09-11] MEDS ORDERED: DEXTROSE 50% 50ML SYRINGE IV PRN (14:20)
[2024-09-11] MEDS ORDERED: VENTAER INH (14:43)
[2024-09-11] MEDS ORDERED: BUPR-597 PO (14:43)
[2024-09-11] MEDS ORDERED: HOME MED LIST COMPLETE! XX SCH (14:45)
[2024-09-11] MEDS: IPRATROPIUM 0.5MG/ALBUTEROL 2.5MG INH SOL UD 3ML (DUONEB) NEB SCH (15:22)
[2024-09-11] MEDS: INSULIN LISPRO (NovoLOG) PER UNIT SC SCH ×2 (18:13→23:01)
[2024-09-11] MEDS: dexAMETHasone 20MG/5ML VIAL IV SCH (18:13)
[2024-09-11] MEDS: **hydrALAZINE HCL** 25 MG TAB PO SCH (18:15)
[2024-09-11] MEDS: BUDESONIDE 0.5 MG/2 ML INHALATION SUSPENSION NEB SCH (21:08)
[2024-09-11] MEDS: FORMOTEROL FUMARATE 20 MCG/2 ML INHALATION SOLUTION (PERFOROMIST) INH SCH (21:08)
[2024-09-11 22:22] VITALS: BP 178/84; TEMP 97.3; O2SAT 93
[2024-09-11] MEDS: LEVEMIR (INSULIN DETEMIR) 1 UNITS/0.01ML SC SCH (23:00)
[2024-09-11] MEDS: PANTOPRAZOLE 40MG TAB (PROTONIX) PO SCH (23:01)
[2024-09-11] MEDS: TOPIRAMATE (TopAMAX) 25 MG TAB PO SCH (23:01)
[2024-09-11] MEDS: DOCUSATE SODIUM 100MG CAPSULE PO SCH (23:02)
[2024-09-12 04:03] VITALS: BP 154/79; TEMP 97.2; O2SAT 98
[2024-09-12] MEDS: ACETAMINOPHEN 325 MG TAB PO PRN (05:19)
[2024-09-12 06:40] LABS: BASO % 0.2 % (0.0-1.0); HEMATOCRIT 37.6 % (36.0-47.0); HEMOGLOBIN 12.9 g/dl (12.0-15.5); LYMPH # 0.5 10^3/uL (1.5-5.0); LYMPH % 10.1 % (24.0-44.0); MEAN CORPUSCULAR HGB CONC 34.3 g/dl (32.0-36.5); MEAN CORPUSCULAR VOLUME 90.4 fl (80.0-96.0); MONO # 0.1 10^3/uL (0.0-0.8); MONO % 2.9 % (2.0-8.0); NEUTROPHILS # 3.9 10^3/uL (1.5-8.5); NEUTROPHILS % 86.4 % (36.0-66.0); PLATELET COUNT, AUTOMATED 304 10^3/uL (150-450); RED BLOOD COUNT 4.16 10^6/uL (4.00-5.40); WHITE BLOOD COUNT 4.6 10^3/uL (4.0-10.0)
[2024-09-12 07:22] LABS: BLOOD UREA NITROGEN 12 MG/DL (9-23); CALCIUM LEVEL 9.9 MG/DL (8.3-10.6); CARBON DIOXIDE LEVEL 24 MMOL/L (20-31); CHLORIDE LEVEL 103 MMOL/L (98-107); CREATININE FOR GFR 0.48 MG/DL (0.55-1.30); GLOMERULAR FILTRATION RATE > 60.0 (>45); GLUCOSE, FASTING 281 MG/DL (74-106); POTASSIUM SERUM 4.4 MMOL/L (3.5-5.1); SODIUM LEVEL 139 MMOL/L (136-145)
[2024-09-12 08:09] VITALS: BP 186/84
[2024-09-12] MEDS: amLODIPine 5 MG TAB PO SCH (08:13)
[2024-09-12] MEDS: buPROPion **XL** TABLET 150MG (WELLBUTRIN XL) PO SCH (08:13)
[2024-09-12] MEDS: ASPIRIN 81MG ENTERIC TABLET PO SCH (08:13)
[2024-09-12] MEDS: ENOXAPARIN 40MG/0.4ML SYRINGE (J1650 PER 10MG) SC SCH (08:13)
[2024-09-12] MEDS: TELMISARTAN 20 MG TAB PO SCH (09:00)
[2024-09-12 12:00] VITALS: BP 163/81; TEMP 97.9; O2SAT 93
[2024-09-12 12:09] VITALS: BP 163/81
[2024-09-12] MEDS: ACETAMINOPHEN 500 MG TAB PO PRN (19:35)
[2024-09-12 21:00] VITALS: BP 175/78; TEMP 97.5; O2SAT 92
[2024-09-12] MEDS: LEVEMIR (INSULIN DETEMIR) 1 UNITS/0.01ML SC SCH (21:15)
[2024-09-12 23:35] VITALS: BP 140/57
[2024-09-13 05:25] VITALS: BP 138/58; TEMP 97.2; O2SAT 91
[2024-09-13 07:03] LABS: BASO % 0.1 % (0.0-1.0); EOS % 0.1 % (0.0-3.0); HEMATOCRIT 37.9 % (36.0-47.0); HEMOGLOBIN 12.8 g/dl (12.0-15.5); LYMPH # 0.7 10^3/uL (1.5-5.0); LYMPH % 5.8 % (24.0-44.0); MEAN CORPUSCULAR HEMOGLOBIN 31.4 pg (27.0-33.0); MEAN CORPUSCULAR HGB CONC 33.8 g/dl (32.0-36.5); MEAN CORPUSCULAR VOLUME 92.9 fl (80.0-96.0); MONO # 0.4 10^3/uL (0.0-0.8); MONO % 3.9 % (2.0-8.0); NEUTROPHILS # 10.1 10^3/uL (1.5-8.5); NEUTROPHILS % 89.4 % (36.0-66.0); PLATELET COUNT, AUTOMATED 313 10^3/uL (150-450); RED BLOOD COUNT 4.08 10^6/uL (4.00-5.40); WHITE BLOOD COUNT 11.3 10^3/uL (4.0-10.0)
[2024-09-13 07:31] LABS: BLOOD UREA NITROGEN 19 MG/DL (9-23); CALCIUM LEVEL 9.5 MG/DL (8.3-10.6); CARBON DIOXIDE LEVEL 24 MMOL/L (20-31); CHLORIDE LEVEL 103 MMOL/L (98-107); CREATININE FOR GFR 0.59 MG/DL (0.55-1.30); GLOMERULAR FILTRATION RATE > 60.0 (>45); GLUCOSE, FASTING 312 MG/DL (74-106); POTASSIUM SERUM 4.2 MMOL/L (3.5-5.1); SODIUM LEVEL 141 MMOL/L (136-145)
[2024-09-13 12:00] VITALS: BP 158/84; TEMP 97.7; O2SAT 96
[2024-09-13] MEDS: INSULIN LISPRO (NovoLOG) PER UNIT SC SCH ×2 (12:00)
[2024-09-13] MEDS: IPRATROPIUM 0.5MG/ALBUTEROL 2.5MG INH SOL UD 3ML (DUONEB) NEB SCH (13:10)
[2024-09-13 19:40] VITALS: BP 144/80; TEMP 97.7; O2SAT 98
[2024-09-14 04:00] VITALS: BP 161/76; TEMP 97.2; O2SAT 94
[2024-09-14 05:27] VITALS: BP 147/74
[2024-09-14 06:20] LABS: BASO % 0.1 % (0.0-1.0); HEMATOCRIT 38.2 % (36.0-47.0); HEMOGLOBIN 12.6 g/dl (12.0-15.5); LYMPH # 1.1 10^3/uL (1.5-5.0); LYMPH % 9.1 % (24.0-44.0); MEAN CORPUSCULAR HEMOGLOBIN 30.2 pg (27.0-33.0); MEAN CORPUSCULAR VOLUME 91.6 fl (80.0-96.0); MONO # 0.4 10^3/uL (0.0-0.8); MONO % 3.5 % (2.0-8.0); NEUTROPHILS # 10.3 10^3/uL (1.5-8.5); NEUTROPHILS % 86.5 % (36.0-66.0); PLATELET COUNT, AUTOMATED 331 10^3/uL (150-450); RED BLOOD COUNT 4.17 10^6/uL (4.00-5.40); WHITE BLOOD COUNT 11.9 10^3/uL (4.0-10.0)
[2024-09-14 06:42] LABS: BLOOD UREA NITROGEN 18 MG/DL (9-23); CALCIUM LEVEL 9.4 MG/DL (8.3-10.6); CARBON DIOXIDE LEVEL 24 MMOL/L (20-31); CHLORIDE LEVEL 103 MMOL/L (98-107); CREATININE FOR GFR 0.61 MG/DL (0.55-1.30); GLOMERULAR FILTRATION RATE > 60.0 (>45); GLUCOSE, FASTING 281 MG/DL (74-106); POTASSIUM SERUM 4.4 MMOL/L (3.5-5.1); SODIUM LEVEL 141 MMOL/L (136-145)
[2024-09-14] MEDS ORDERED: PANT40TA29 PO (08:33)
[2024-09-14] MEDS ORDERED: ALBU2.5V10 NEB (08:33)
[2024-09-14] MEDS ORDERED: PRED10TA2 PO (08:33)
[2024-09-14] MEDS ORDERED: AMLO1TAB24 PO (08:33)
[2024-09-14] MEDS ORDERED: BASA100I SC (08:33)
== END 2024-09-14 10:15 | disposition home or self-care (01) | DRG 140 ==
LOC: EDBD 09:39 → M ED 09:39 → M ED INP 14:17 → M MS5PR 22:22
PROVIDERS: ADMIT Internal Medicine Nephrology; ATTEND Internal Medicine Nephrology
DX: J44.1 Chronic obstructive pulmonary disease with (acute) exacerbation (principal); Z68.41 Body mass index [BMI] 40.0-44.9, adult; I11.0 Hypertensive heart disease with heart failure; B97.4 Respiratory syncytial virus as the cause of diseases classified elsewhere; E11.65 Type 2 diabetes mellitus with hyperglycemia; I50.32 Chronic diastolic (congestive) heart failure; K75.81 Nonalcoholic steatohepatitis (NASH); E66.01 Morbid (severe) obesity due to excess calories; G47.33 Obstructive sleep apnea (adult) (pediatric); T38.0X5A Adverse effect of glucocorticoids and synthetic analogues, initial encounter; G43.909 Migraine, unspecified, not intractable, without status migrainosus; M16.0 Bilateral primary osteoarthritis of hip; M54.50 Low back pain, unspecified; G89.29 Other chronic pain; M79.18 Myalgia, other site; E03.9 Hypothyroidism, unspecified; Z96.642 Presence of left artificial hip joint; Z98.49 Cataract extraction status, unspecified eye; Z90.49 Acquired absence of other specified parts of digestive tract; F17.200 Nicotine dependence, unspecified, uncomplicated; Z79.82 Long term (current) use of aspirin; Z79.4 Long term (current) use of insulin; Z79.899 Other long term (current) drug therapy; Z88.5 Allergy status to narcotic agent; Z88.7 Allergy status to serum and vaccine; Z91.030 Bee allergy status

== ENCOUNTER 2024-09-22 18:06 | Emergency (ER) | payer MEDICAID, OTHER ==
[~2024-09-22] VITALS: Ht 165.1 cm; Wt 114.4 kg
[~2024-09-22 18:06] MED LIST changes: +ALBU2.5V10 NEB; +AMLO1TAB24 PO; +BUPR-597 PO; +PANT40TA29 PO; +SEMA14TA2 PO; +TELM1TAB37 PO; +TREL1AER PO; +VENTAER INH
[2024-09-22 18:16] VITALS: TEMP 97.4
[2024-09-22] MEDS ORDERED: ISOVUE-370 76% 100ML VIAL As Ordered ONE (19:44)
[2024-09-22] MEDS: ONDANSETRON 4MG 2ML VIAL IV ONE (19:45)
[2024-09-22 19:47] LABS: BASO % 0.2 % (0.0-1.0); EOS % 0.1 % (0.0-3.0); HEMATOCRIT 40.1 % (36.0-47.0); HEMOGLOBIN 13.2 g/dl (12.0-15.5); LYMPH # 1.9 10^3/uL (1.5-5.0); LYMPH % 14.4 % (24.0-44.0); MEAN CORPUSCULAR HEMOGLOBIN 30.7 pg (27.0-33.0); MEAN CORPUSCULAR HGB CONC 32.9 g/dl (32.0-36.5); MEAN CORPUSCULAR VOLUME 93.3 fl (80.0-96.0); MONO # 0.7 10^3/uL (0.0-0.8); MONO % 5.1 % (2.0-8.0); NEUTROPHILS # 10.6 10^3/uL (1.5-8.5); NEUTROPHILS % 79.4 % (36.0-66.0); PLATELET COUNT, AUTOMATED 282 10^3/uL (150-450); WHITE BLOOD COUNT 13.3 10^3/uL (4.0-10.0)
[2024-09-22 19:55] LABS: KETONE, URINE AUTO RFX 1+ mg/dL (NEGATIVE); LEUKOCYTE ESTERASE UR AUTO RFX TRACE (NEGATIVE); MUCUS, URINE RFX SMALL (NEGATIVE); NITRITE, URINE AUTO RFX NEGATIVE (NEGATIVE); RBC, URINE AUTO RFX 8 /HPF (0-3); SQUAM EPITHELIAL CELL UR AURFX 1 /HPF (0-6); WBC, URINE AUTO RFX 22 /HPF (0-3)
[2024-09-22 20:20] LABS: ALBUMIN 3.3 G/DL (3.2-5.2); BILIRUBIN,DIRECT 0.2 MG/DL (<0.4); BILIRUBIN,TOTAL 0.5 MG/DL (0.3-1.2); TOTAL PROTEIN 6.6 G/DL (5.7-8.2)
[2024-09-22 22:00] VITALS: BP 141/76; O2SAT 95
[2024-09-22] MEDS ORDERED: NITR100C3 PO (22:02)
[2024-09-22] MEDS ORDERED: COLA100C5 PO (22:02)
[2024-09-22] MEDS ORDERED: OMEP40CA4 PO (22:09)
[2024-09-22] MEDS: PANTOPRAZOLE 40MG VIAL IV ONE (22:21)
[2024-09-22] MEDS: MAGNESIUM CITRATE 300ML BTL PO ONE (22:21)
[2024-09-26] MEDS ORDERED: CEPH500C PO (16:38)
== END 2024-09-22 22:30 | disposition home or self-care (01) ==
LOC: EDBD 18:06 → M ED 18:06
DX: R10.10 Upper abdominal pain, unspecified (principal); E11.9 Type 2 diabetes mellitus without complications; I10 Essential (primary) hypertension; J44.9 Chronic obstructive pulmonary disease, unspecified; Z87.891 Personal history of nicotine dependence; Z79.82 Long term (current) use of aspirin; Z79.84 Long term (current) use of oral hypoglycemic drugs; Z79.899 Other long term (current) drug therapy; Z91.030 Bee allergy status; Z88.7 Allergy status to serum and vaccine; Z88.5 Allergy status to narcotic agent
CPT/HCPCS: 74177; 80047; 80076; 81001; 83690; 85025; 87088; 87186; 93005; 96374; 96375; 99284; J2405; J2470; Q9967

== ENCOUNTER → 2024-10-07 | Outpatient (CLI) | payer OTHER ==
[~2024-10-07] MED LIST changes: +CEPH500C PO; +COLA100C5 PO; +NITR100C3 PO; +OMEP40CA4 PO
== END ==
LOC: M WHC 12:15
PROVIDERS: ATTEND Pediatrics
DX: Z12.31 Encounter for screening mammogram for malignant neoplasm of breast (principal)

== ENCOUNTER 2024-12-19 17:20 | Emergency (ER) | payer OTHER ==
[~2024-12-19] VITALS: Ht 165.1 cm; Wt 116.7 kg
[~2024-12-19 17:20] MED LIST changes: -BUPR-597 PO; +BUPR-766 PO; +TOPI-256 PO; -TOPI25TA10 PO
[2024-12-19 20:49] VITALS: TEMP 97.6
[2024-12-19 23:01] VITALS: BP 189/86
[2024-12-19 23:11] VITALS: O2SAT 94
[2024-12-19] MEDS ORDERED: CELE1CAP4 PO (23:18)
== END 2024-12-19 23:29 | disposition home or self-care (01) ==
LOC: M ED 17:20
DX: M25.552 Pain in left hip (principal); M16.11 Unilateral primary osteoarthritis, right hip; Z96.641 Presence of right artificial hip joint; E11.9 Type 2 diabetes mellitus without complications; I10 Essential (primary) hypertension; E78.5 Hyperlipidemia, unspecified; J44.9 Chronic obstructive pulmonary disease, unspecified; Z79.82 Long term (current) use of aspirin; Z79.899 Other long term (current) drug therapy; Z88.5 Allergy status to narcotic agent; Z88.7 Allergy status to serum and vaccine; Z91.030 Bee allergy status

== ENCOUNTER → 2025-03-06 | Outpatient (CLI) | payer OTHER ==
[~2025-03-06] MED LIST changes: +CELE1CAP4 PO
== END ==
LOC: M RAD 07:08
PROVIDERS: ATTEND Pediatrics
DX: R91.8 Other nonspecific abnormal finding of lung field (principal)

== ENCOUNTER 2025-06-12 10:38 | Emergency (ER) | payer OTHER ==
[~2025-06-12] VITALS: Ht 165.1 cm; Wt 104.1 kg
[2025-06-12 10:42] VITALS: TEMP 97.8
[2025-06-12 11:24] LABS: KETONE, URINE AUTO RFX TRACE mg/dL (NEGATIVE); LEUKOCYTE ESTERASE UR AUTO RFX 2+ (NEGATIVE); MUCUS, URINE RFX SMALL (NEGATIVE); NITRITE, URINE AUTO RFX NEGATIVE (NEGATIVE); RBC, URINE AUTO RFX 9 /HPF (0-3); SQUAM EPITHELIAL CELL UR AURFX 10 /HPF (0-6)
[2025-06-12 11:25] LABS: WBC, URINE AUTO RFX 65 /HPF (0-3)
[2025-06-12 11:36] LABS: BASO # 0.0 10^3/uL (0.0-0.2); BASO % 0.3 % (0.0-1.0); EOS # 0.1 10^3/uL (0.0-0.5); EOS % 0.6 % (0.0-3.0); LYMPH # 1.3 10^3/uL (1.5-5.0); LYMPH % 16.1 % (24.0-44.0); MONO # 0.5 10^3/uL (0.0-0.8); MONO % 6.2 % (2.0-8.0); NEUTROPHILS # 6.0 10^3/uL (1.5-8.5); NEUTROPHILS % 76.4 % (36.0-66.0); PLATELET COUNT, AUTOMATED 337 10^3/uL (150-450)
[2025-06-12 11:58] LABS: CALCIUM LEVEL 9.3 MG/DL (8.3-10.6); CARBON DIOXIDE LEVEL 24 MMOL/L (20-31); CHLORIDE LEVEL 108 MMOL/L (98-107); CREATININE FOR GFR 0.65 MG/DL (0.55-1.30); GLOMERULAR FILTRATION RATE > 90.0 (>45); POTASSIUM SERUM 3.5 MMOL/L (3.5-5.1); SODIUM LEVEL 141 MMOL/L (136-145)
[2025-06-12] MEDS ORDERED: HOME MED LIST COMPLETE! XX SCH (13:45)
[2025-06-12] MEDS: KETOROLAC 30 MG/ML 1 ML VIAL IV ONE (15:49)
[2025-06-12 16:15] VITALS: BP 168/84; O2SAT 95
[2025-06-12] MEDS ORDERED: CEPH500C PO (16:16)
== END 2025-06-12 16:35 | disposition home or self-care (01) ==
LOC: EDBD 10:38 → M ED 10:38
DX: N39.0 Urinary tract infection, site not specified (principal); N20.0 Calculus of kidney; D35.02 Benign neoplasm of left adrenal gland; I50.9 Heart failure, unspecified; I11.0 Hypertensive heart disease with heart failure; E11.9 Type 2 diabetes mellitus without complications; J44.9 Chronic obstructive pulmonary disease, unspecified; K21.9 Gastro-esophageal reflux disease without esophagitis; G43.909 Migraine, unspecified, not intractable, without status migrainosus; K57.90 Diverticulosis of intestine, part unspecified, without perforation or abscess without bleeding; Z87.442 Personal history of urinary calculi; F17.200 Nicotine dependence, unspecified, uncomplicated; G47.33 Obstructive sleep apnea (adult) (pediatric); E66.9 Obesity, unspecified; Z79.82 Long term (current) use of aspirin; Z79.84 Long term (current) use of oral hypoglycemic drugs; Z79.899 Other long term (current) drug therapy; Z88.5 Allergy status to narcotic agent; Z88.6 Allergy status to analgesic agent; Z91.030 Bee allergy status
CPT/HCPCS: 74176; 80048; 81001; 85025; 87088; 87186; 96374; 99284; J1885